=== PATIENT | female | born 1960 | race Caucasian/White ===

== ENCOUNTER 2016-07-15 18:42 | Emergency (ER) | payer MEDICAID | END 2016-07-15 19:19 | disposition left against medical advice (07) | LOC: JP.ED 18:42 | DX: Z53.21 Procedure and treatment not carried out due to patient leaving prior to being seen by health care provider (principal) ==

== ENCOUNTER 2016-09-19 01:58 | Observation (INO) | payer MEDICAID ==
[2016-09-19] MEDS ORDERED: Sodium Chloride 0.9% 1,000 ML IV SCH ×3 (02:15→08:00)
--- NOTE | 2016-09-19 07:19 | EDM.PDOC ---
ED HPI GENERAL MEDICAL PROBLEM - General Chief Complaint: Behavioral/Psych Stated Complaint: MEDICAL [facility]IA [facility] Time Seen by Provider: 09/19/16 02:08 Source of Information: Reports: Patient History Limitations: Reports: Altered Mental Status - History of Present Illness INITIAL COMMENTS - FREE TEXT/NARRATIVE: History of present illness: [56-year-old female is brought in by ambulance with overdose of Seroquel with suicide intent. Since arrival she's been so sleepy and somnolent but able to get a meaningful history from her she continues to sleep heavily. She's been here for. 4 hours. She's been hemodynamically stable moving all extremities and that's the only history when forgetting at this point. I've been able to return more history from her at this point. Apparently she had taken gabapentin and Imdur as well and these are not her medications. She was violently when the animals arrived and throwing things around she was seen on 6:15 by mental health provider in [place] in at that time admitted to having ongoing struggles with recovery and admits taking her friend's gabapentin she continues to crave a high that apparently gabapentin gives her. She apparently was on Suboxone at one time but had not been taking that recently.] Review of systems: As per history of present illness and below otherwise all systems reviewed and negative. Past medical history: As per history of present illness and as reviewed below otherwise noncontributory. Surgical history: As per history of present illness and as reviewed below otherwise noncontributory. Social history: No reported history of drug or alcohol abuse. Family history: As per history of present illness and as reviewed below otherwise noncontributory. Physical exam: HEENT: Atraumatic, normocephalic, pupils reactive, negative for conjunctival pallor or scleral icterus, mucous membranes moist, throat clear, neck supple, nontender, trachea midline. Lungs: Clear to auscultation, breath sounds equal bilaterally, chest nontender. Heart: S1S2, regular, negative for clicks, rubs, or JVD. Abdomen: Soft, nondistended, nontender. Negative for masses or hepatosplenomegaly. Negative for costovertebral tenderness. Pelvis: Stable nontender. Genitourinary: Deferred. Rectal: Deferred. Extremities: Atraumatic, negative for cords or calf pain. Neurovascular unremarkable. Neuro: Awake, alert, oriented. Exam nonfocal. Diagnostics: [She's had CBC complete metabolic panel UA urine drug screen acetaminophen levels salicylate level and EtOH level. Urine drug screen is positive for THC. EKG showing normal sinus rhythm without QT we've also done a magnesium level which is normal CK is slightly elevated.] Therapeutics: [She's receiving IV fluids] Impression: [Overdose of Seroquel gabapentin and Imdur. with this as we can attempt and suicidal intent] Plan: [It will be difficult to assess her level of suicidality until she is able to awake and be assessed. Dr. Herrera has been contacted and she'll be admitted to the ICU as an overflow patient for observation and will have to wait until she awakens to assess her further. She's been discussed with poison control at this time by one of her nurses.] Definitive disposition and diagnosis as appropriate pending reevaluation and review of above. Bilateral Knee Pain Score (Numeric/FACES): 6 - Related Data Allergies Allergy/AdvReac Type Severity Reaction Status Date / Time codeine Allergy Nausea and Verified 09/19/16 02:20 Vomiting morphine Allergy Nausea and Verified 09/19/16 02:20 Vomiting Sulfa (Sulfonamide Allergy Cannot Verified 12/05/15 13:36 Antibiotics) Remember Home Meds: Home Meds QUEtiapine Fumarate [Seroquel] 300 mg PO BEDTIME 12/05/15 [History] Cyclobenzaprine [Flexeril] 10 mg PO DAILY PRN 09/19/16 [History] Docusate Sodium 100 mg PO DAILY 09/19/16 [History] Ibuprofen [Motrin] 800 mg PO TID PRN 09/19/16 [History] Magnesium Oxide 400 mg PO DAILY 09/19/16 [History] Omeprazole 40 mg PO DAILY 09/19/16 [History] Orphenadrine [Norflex] 100 mg PO BID PRN 09/19/16 [History] Pnv with Ca,No.72/Iron/Fa [Preplus Ca-Fe 27 mg-FA 1 mg Tb] 1 each PO DAILY 09/19 [History] Prednisone [IMW: predniSONE] 40 mg PO WITHBREAKFAST 09/19/16 [History] QUEtiapine [SEROquel] 25 mg PO BEDTIME 09/19/16 [History] Tiotropium [Spiriva] 18 mcg INH BID 09/19/16 [History] Venlafaxine [Effexor] 225 mg PO DAILY 09/19/16 [History] lamoTRIgine [Lamotrigine] 25 mg PO BEDTIME 09/19/16 [History] Past Medical History Musculoskeletal History: Reports: Other (See Below) Other Musculoskeletal History: carpal tunnel Psychiatric History: Reports: Addiction, Anxiety, Depression - Infectious Disease History Infectious Disease History: Reports: Chicken Pox Social & Family History - Tobacco Use Smoking Status *Q: Current Every Day Smoker Years of Tobacco use: 13 Packs/Tins Daily: 1.5 - Caffeine Use Caffeine Use: Reports: Coffee, Tea - Recreational Drug Use Recreational Drug Use: Yes Recreational Drug Type: Reports: Marijuana/Hashish, Other (see below) Other Recreational Drug Type: gabapentin Recreational Drug Use Frequency: Daily ED ROS GENERAL - Review of Systems Review Of Systems: Unable To Obtain ED EXAM, BEHAVIORAL HEALTH - Physical Exam Exam: See Below COURSE, BEHAVIORAL HEALTH COMP - Course Vital Signs: Last Vital Signs Temp 36.8 C 09/19/16 02:07 Pulse 70 09/19/16 06:57 Resp 16 09/19/16 02:07 BP 94/58 L 09/19/16 06:57 Pulse Ox 92 L 09/19/16 06:57 Orders, Labs, Meds: Active Orders 24 hr Category Date Time Status Cardiac Monitoring [RC] .As Directed Care 09/19/16 02:14 Active EKG Documentation Completion [RC] ASDIRECTED Care 09/19/16 02:10 Active Sodium Chloride 0.9% [Normal Saline] 1,000 ml Med 09/19/16 08:00 Active IV ASDIRECTED EKG 12 Lead [EK] Stat Ther 09/19/16 02:09 Ordered Medication Orders Sodium Chloride (Normal Saline) 1,000 mls @ 500 mls/hr IV ASDIRECTED MACO Laboratory Tests 09/19/16 09/19/16 09/19/16 Range/Units 02:09 02:09 02:09 WBC 8.9 (4.5-11.0) K/uL RBC 3.82 (3.30-5.50) M/uL Hgb 12.0 (12.0-15.0) g/dL Hct 36.0 (36.0-48.0) % MCV 94 (80-98) fL MCH 31 (27-31) pg MCHC 33 (32-36) % Plt Count 190 (150-400) K/uL Neut % (Auto) 68 H (36-66) % Lymph % (Auto) 22 L (24-44) % [place] % (Auto) 10 H (2-6) % Eos % (Auto) 1 L (2-4) % Baso % (Auto) 0 (0-1) % Sodium 139 L (140-148) mmol/L Potassium 3.4 L (3.6-5.2) mmol/L Chloride 105 (100-108) mmol/L Carbon Dioxide 24 (21-32) mmol/L Anion Gap 13.4 (5.0-14.0) mmol/L BUN 14 (7-18) mg/dL Creatinine 0.9 (0.6-1.0) mg/dL Est Cr Clr Drug Dosing 65.61 mL/min Estimated GFR (MDRD) > 60 (>60) Glucose 155 H (74-106) mg/dL Calcium 8.4 L (8.5-10.1) mg/dL Magnesium (1.8-2.4) mg/dL Total Bilirubin 0.3 (0.2-1.0) mg/dL AST 32 (15-37) U/L ALT 40 (12-78) U/L Alkaline Phosphatase 72 (46-116) U/L Creatine Kinase (26-192) U/L Total Protein 6.0 L (6.4-8.2) g/dL Albumin 2.7 L (3.4-5.0) g/dL Globulin 3.3 (2.3-3.5) g/dL Albumin/Globulin Ratio 0.8 L (1.2-2.2) TSH, Ultra Sensitive (0.358-3.740) uIU/mL Urine Color Yellow Urine Appearance Clear Urine pH 6.0 (4.5-8.0) Ur Specific [place] 1.010 (1.008-1.030) Urine Protein Negative (NEGATIVE) mg/dL Urine Glucose (UA) Normal (NEGATIVE) mg/dL Urine Ketones Negative (NEGATIVE) mg/dL Urine Occult Blood Negative (NEGATIVE) Urine Nitrite Negative (NEGATIVE) Urine Bilirubin Negative (NEGATIVE) Urine Urobilinogen Normal (NORMAL) mg/dL Ur Leukocyte Esterase Negative (NEGATIVE) Urine RBC 0-5 (0-5) Urine WBC 0-5 (0-5) Ur Epithelial Cells Moderate Amorphous Sediment Few Urine Bacteria Rare Urine Mucus Few Salicylates (2.0-20.0) mg/dL Urine Opiates Screen (NEGATIVE) Ur Oxycodone Screen (NEGATIVE) Urine Methadone Screen (NEGATIVE) Ur Propoxyphene Screen (NEGATIVE) Acetaminophen (10.0-30.0) ug/mL Ur Barbiturates Screen (NEGATIVE) Ur Tricyclics Screen (NEGATIVE) Ur Phencyclidine Scrn (NEGATIVE) Ur Amphetamine Screen (NEGATIVE) U Methamphetamines Scrn (NEGATIVE) Urine MDMA Screen (NEGATIVE) U Benzodiazepines Scrn (NEGATIVE) U Cocaine Metab Screen (NEGATIVE) U Marijuana (THC) Screen (NEGATIVE) Ethyl Alcohol mg/dL 09/19/16 09/19/16 09/19/16 Range/Units 02:10 02:10 02:10 WBC (4.5-11.0) K/uL RBC (3.30-5.50) M/uL Hgb (12.0-15.0) g/dL Hct (36.0-48.0) % MCV (80-98) fL MCH (27-31) pg MCHC (32-36) % Plt Count (150-400) K/uL Neut % (Auto) (36-66) % Lymph % (Auto) (24-44) % Rosebud % (Auto) (2-6) % Eos % (Auto) (2-4) % Baso % (Auto) (0-1) % Sodium (140-148) mmol/L Potassium (3.6-5.2) mmol/L Chloride (100-108) mmol/L Carbon Dioxide (21-32) mmol/L Anion Gap (5.0-14.0) mmol/L BUN (7-18) mg/dL Creatinine (0.6-1.0) mg/dL Est Cr Clr Drug Dosing mL/min Estimated GFR (MDRD) (>60) Glucose (74-106) mg/dL Calcium (8.5-10.1) mg/dL Magnesium (1.8-2.4) mg/dL Total Bilirubin (0.2-1.0) mg/dL AST (15-37) U/L ALT (12-78) U/L Alkaline Phosphatase (46-116) U/L Creatine Kinase (26-192) U/L Total Protein (6.4-8.2) g/dL Albumin (3.4-5.0) g/dL Globulin (2.3-3.5) g/dL Albumin/Globulin Ratio (1.2-2.2) TSH, Ultra Sensitive (0.358-3.740) uIU/mL Urine Color Urine Appearance Urine pH (4.5-8.0) Ur Specific [place] (1.008-1.030) Urine Protein (NEGATIVE) mg/dL Urine Glucose (UA) (NEGATIVE) mg/dL Urine Ketones (NEGATIVE) mg/dL Urine Occult Blood (NEGATIVE) Urine Nitrite (NEGATIVE) Urine Bilirubin (NEGATIVE) Urine Urobilinogen (NORMAL) mg/dL Ur Leukocyte Esterase (NEGATIVE) Urine RBC (0-5) Urine WBC (0-5) Ur Epithelial Cells Amorphous Sediment Urine Bacteria Urine Mucus Salicylates 13.1 (2.0-20.0) mg/dL Urine Opiates Screen (NEGATIVE) Ur Oxycodone Screen (NEGATIVE) Urine Methadone Screen (NEGATIVE) Ur Propoxyphene Screen (NEGATIVE) Acetaminophen 0.0 L (10.0-30.0) ug/mL Ur Barbiturates Screen (NEGATIVE) Ur Tricyclics Screen (NEGATIVE) Ur Phencyclidine Scrn (NEGATIVE) Ur Amphetamine Screen (NEGATIVE) U Methamphetamines Scrn (NEGATIVE) Urine MDMA Screen (NEGATIVE) U Benzodiazepines Scrn (NEGATIVE) U Cocaine Metab Screen (NEGATIVE) U Marijuana (THC) Screen (NEGATIVE) Ethyl Alcohol 3 mg/dL 09/19/16 09/19/16 09/19/16 Range/Units 02:10 02:14 02:16 WBC (4.5-11.0) K/uL RBC (3.30-5.50) M/uL Hgb (12.0-15.0) g/dL Hct (36.0-48.0) % MCV (80-98) fL MCH (27-31) pg MCHC (32-36) % Plt Count (150-400) K/uL Neut % (Auto) (36-66) % Lymph % (Auto) (24-44) % [place] % (Auto) (2-6) % Eos % (Auto) (2-4) % Baso % (Auto) (0-1) % Sodium (140-148) mmol/L Potassium (3.6-5.2) mmol/L Chloride (100-108) mmol/L Carbon Dioxide (21-32) mmol/L Anion Gap (5.0-14.0) mmol/L BUN (7-18) mg/dL Creatinine (0.6-1.0) mg/dL Est Cr Clr Drug Dosing mL/min Estimated GFR (MDRD) (>60) Glucose (74-106) mg/dL Calcium (8.5-10.1) mg/dL Magnesium 2.0 (1.8-2.4) mg/dL Total Bilirubin (0.2-1.0) mg/dL AST (15-37) U/L ALT (12-78) U/L Alkaline Phosphatase (46-116) U/L Creatine Kinase 380 H (26-192) U/L Total Protein (6.4-8.2) g/dL Albumin (3.4-5.0) g/dL Globulin (2.3-3.5) g/dL Albumin/Globulin Ratio (1.2-2.2) TSH, Ultra Sensitive 0.966 (0.358-3.740) uIU/mL Urine Color Urine Appearance Urine pH (4.5-8.0) Ur Specific [place] (1.008-1.030) Urine Protein (NEGATIVE) mg/dL Urine Glucose (UA) (NEGATIVE) mg/dL Urine Ketones (NEGATIVE) mg/dL Urine Occult Blood (NEGATIVE) Urine Nitrite (NEGATIVE) Urine Bilirubin (NEGATIVE) Urine Urobilinogen (NORMAL) mg/dL Ur Leukocyte Esterase (NEGATIVE) Urine RBC (0-5) Urine WBC (0-5) Ur Epithelial Cells Amorphous Sediment Urine Bacteria Urine Mucus Salicylates (2.0-20.0) mg/dL Urine Opiates Screen Negative (NEGATIVE) Ur Oxycodone Screen Negative (NEGATIVE) Urine Methadone Screen Negative (NEGATIVE) Ur Propoxyphene Screen Negative (NEGATIVE) Acetaminophen (10.0-30.0) ug/mL Ur Barbiturates Screen Negative (NEGATIVE) Ur Tricyclics Screen Negative (NEGATIVE) Ur Phencyclidine Scrn Negative (NEGATIVE) Ur Amphetamine Screen Negative (NEGATIVE) U Methamphetamines Scrn Negative (NEGATIVE) Urine MDMA Screen Negative (NEGATIVE) U Benzodiazepines Scrn Negative (NEGATIVE) U Cocaine Metab Screen Negative (NEGATIVE) U Marijuana (THC) Screen Positive H (NEGATIVE) Ethyl Alcohol mg/dL Medications Generic Name Dose Route Start Last Admin Trade Name Freq PRN Reason Stop Dose Admin Sodium Chloride 1,000 mls @ 500 mls/hr 09/19/16 08:00 Normal Saline IV ASDIRECTED MACO Discontinued Medications Generic Name Dose Route Start Last Admin Trade Name Freq PRN Reason Stop Dose Admin Sodium Chloride 1,000 mls @ 500 mls/hr 09/19/16 02:15 09/19/16 02:33 Normal Saline IV 500 mls/hr ASDIRECTED MACO Administration Sodium Chloride 1,000 mls @ 500 mls/hr 09/19/16 05:15 09/19/16 05:07 Normal Saline IV 125 mls/hr ASDIRECTED MACO Administration Departure - Departure Time of Disposition: 07:57 Disposition: Admitted As Inpatient 64 Clinical Impression: Polysubstance overdose Qualifiers: Encounter type: initial encounter Injury intent: intentional self-harm Qualified Code(s): T50.902A - Poisoning by unspecified drugs, medicaments and biological substances, intentional self-harm, initial encounter - Discharge Information Forms: ED Department Discharge - My Orders Last 24 Hours: My Active Orders 09/19/16 02:09 EKG 12 Lead [EK] Stat 09/19/16 02:10 EKG Documentation Completion [RC] ASDIRECTED 09/19/16 02:14 Cardiac Monitoring [RC] .As Directed 09/19/16 08:00 Sodium Chloride 0.9% [Normal Saline] 1,000 ml IV ASDIRECTED - Assessment/Plan Last 24 Hours: My Active Orders 09/19/16 02:09 EKG 12 Lead [EK] Stat 09/19/16 02:10 EKG Documentation Completion [RC] ASDIRECTED 09/19/16 02:14 Cardiac Monitoring [RC] .As Directed 09/19/16 08:00 Sodium Chloride 0.9% [Normal Saline] 1,000 ml IV ASDIRECTED
[2016-09-19] MEDS ORDERED: Calcium Gluconate 1 GM in Sodium Chloride 0.9% 100 ML IV ONE (08:25)
[2016-09-19] MEDS ORDERED: Nicotine 21 MG/24 Hr Patch TRDERM SCH (10:00)
[2016-09-19] MEDS: NS + KCl 20mEq/L 1,000 ML IV SCH ×3 (10:19→23:39)
[2016-09-19] MEDS: Nicotine 14 MG/24 Hr Patch TRDERM SCH (10:24)
--- NOTE | 2016-09-19 16:29 | HP ---
IDENTIFYING DATA: Nany Anderson is a 56-year-old single female from [place]. CHIEF COMPLAINT: Drug ingestion. HISTORY OF PRESENT ILLNESS: This adult female was delivered to the emergency room by ambulance services. Law enforcement had received a call that she was acting violently at her apartment complex, yelling and throwing objects, and on their arrival, reportedly admitted to ingestion of medications. She was conversant though agitated when ambulance arrived, she was calming and became increasingly sedated. Records initially suggested she had ingested a combination of Seroquel, gabapentin, and Imdur. Later this was corrected noting she has not ingested Imdur rather had ingested Inderal. She has a longstanding history of recurrent depression with suicide attempt, reported posttraumatic stress disorder and potential bipolar affective disorder. Additionally, she has ongoing history of multisubstance abuse with reports of previous alcohol, cannabis, and methamphetamine abuse. She is seen by [facility] on a regular basis with recent addition of Lamictal to her medication regimen. Records suggest she indicate she was relapsing with substance abuse at the time of most recent evaluation though did not have suicidal ideation. PAST MEDICAL HISTORY: The patient is somnolent secondary to medication ingestion, unable to provide additional factual information. 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 ALLERGIES: BY RECORD REVIEW INDICATE CODEINE, MORPHINE, AND SULFA. CURRENT MEDICATIONS: Lamictal 25 mg at bedtime initiated within the past week with subsequent increase to 50 mg a day at bedtime, cyclobenzaprine 10 mg p.r.n. muscle spasm, venlafaxine extended release 225 mg every morning, propranolol 20 mg b.i.d., magnesium oxide 400 mg at bedtime, docusate 100 mg daily, MiraLAX 17 g daily p.r.n. constipation, Zofran 4 mg q.8 hours p.r.n. nausea, Seroquel 325 mg at bedtime, Motrin 800 mg q.8 hours p.r.n. pain, albuterol metered dose inhaler 2 puffs q.6 hours p.r.n. shortness of breath, vitamin with iron one tablet daily, omeprazole 40 mg daily, Spiriva 18 mcg capsules inhaled daily. HABITS: Noted history of chronic alcohol abuse with relapsing binge drinking reported. Records suggest recent substance abuse as well including use of gabapentin for desired high. No recent influenza vaccine, pneumococcal status is unknown. SOCIAL HISTORY: Records indicate residence and an apartment complex in [place]. Next to kin is a daughter in the [place] area. FAMILY HISTORY: Unable to obtain given the patient is sedated and minimally responsive state. REVIEW OF SYSTEMS: NEUROLOGIC: No noted history of strokes or seizures. No glasses worn. CARDIAC: No history of hypertension, diabetes, or cardiac disease by record review. RESPIRATORY: Suggested obstructive pulmonary disease and chronic tobacco use. GASTROINTESTINAL: Records indicate a history of hepatitis C exposure. No definitive documentation of chronic hepatitis C. No emesis or apparent abdominal pain on presentation. GENITOURINARY: No incontinence. PHYSICAL EXAMINATION: GENERAL: Appearance is that of an adult female, somnolent, minimally responsive to verbal and tactile stimulation. VITAL SIGNS: Temperature 36.8 degrees centigrade, pulse is 70, respiratory rate 16, blood pressure 94/58, O2 saturations 92% on room air. HEENT: Canals and TMs are normal on inspection of the ears. Pupils are reactive to light and direct and consensual responses. No nystagmus. No movement. No facial asymmetries. Oral mucosa is noninflamed. NECK: No stridor, adenopathy, or nuchal rigidity. No meningismus. Brisk carotid pulses. No bruits. LUNGS: Clear. Non-tachypneic. HEART: Regular without murmurs or gallops. Sinus rhythm with controlled rate by cardiac monitoring. ABDOMEN: Thin, soft, nontender, and nondistended. No organomegaly. Active sounds. Good femoral pulses. GENITOURINARY: Omitted. RECTAL: Omitted. EXTREMITIES: Warm and pink. Non-diaphoretic. No cyanosis or duskiness of the nail beds. Brisk capillary refill. Radial and posterior tibial pulses are brisk and intact. No pitting edema. NEUROLOGIC: Symmetrical brachia radialis, patellar, and bicipital DTRs. Normal tone throughout symmetrical movement of the upper and lower extremities with tactile stimulation. No purposeful movement at the current time. She responds to voice and sternal rub. Does not engage in conversation. She is nonambulatory at the current time. LABORATORY DATA: WBC 8.9, hemoglobin 12, platelet count 190,000, sodium 139, potassium mildly depressed at 3.4, BUN 14, creatinine 0.9. GFR greater than 60. Glucose 155, calcium 8.4, AST 32, ALT 40, alkaline phosphatase 72. Urinalysis, negative dipstick. Urine drug screen negative for acetaminophen and weakly positive for salicylates, magnesium 2.0, creatine kinase moderately elevated at 380. TSH is 0.97. Urine drug screen positive for THC. Otherwise unremarkable. IMPRESSIONS: 1. Multidrug ingestion with somnolent state. 2. History of depressive disorder. 3. History of substance abuse with records indicating methamphetamine, cannabis, and alcohol abuse, recurrently overtime. 4. Voiced suicidal ideation at the time of transfer to the Emergency Department now with sedated state. Unable to provide factual information. PLAN: The patient will be admitted to the Intensive Care Unit for continued cardiac monitoring. IV fluid infusion to maintain hydration, and neuro checks have been initiated if she awakens and shows violent tendencies or ongoing suicidal intent. A 72-hour hold will be issued, no medications provided. Currently, we will request behavioral health assessment as well. Full code status is maintained. Yonathan Sheppard MD /[id number]
[2016-09-20] MEDS: NS + KCl 20mEq/L 1,000 ML IV SCH (05:58)
[2016-09-20 08:32] VITALS: BP 119/72
--- NOTE | 2016-09-20 09:33 | PCM.DCSUM1 ---
Discharge Summary - Hospital Course Brief History: 56 yr old female with hx of depression, polysubstance drug use issues who presented with agitation after poly-drug ingestion. She was admitted for observation and detoxification. - Discharge Data Discharge Date: 09/20/16 Discharge Disposition: Home, Self-Care 01 Condition: Fair - Discharge Diagnosis/Problem(s) (1) Polysubstance overdose SNOMED Code(s): 78530179 ICD Code: T50.901A - POISONING BY UNSP DRUG/MEDS/BIOL SUBST, ACCIDENTAL, INIT Status: Acute Qualifiers: Encounter type: initial encounter Injury intent: accidental or unintentional Qualified Code(s): T50.901A - Poisoning by unspecified drugs, medicaments and biological substances, accidental (unintentional), initial encounter - Patient Summary/Data Hospital Course: Nany was admitted yesterday after a possible drug overdose and potentially indigestion to cause self-harm. History was difficult to obtain at the time because of somnolence and obtundation. She had mild hypotension and bradycardia throughout much of the day but as the day progressed following admission her heart rate returned to normal and blood pressures normalized as well. She did wake up yesterday evening after sleeping much of the day. No acute events overnight and her vital signs have been stable. On the morning of discharge we reviewed the events leading up to the ingestion that prompted admission. She reports that she was intoxicated with gabapentin tablets and then impulsively took propranolol and quetiapine tablets to see if she could have additional intoxication effects. She says that this was not an attempt to harm herself and she has no suicidal ideations or intent. She is remorseful of the events leading up to hospital admission. She has been apologetic to her daughter. To me this seems like an impulsive ingestion while she was intoxicated with another substance. There certainly are some underlying substance use issues here but I don't believe that she is actively suicidal or dangerous to herself. I did speak with one of her interval health practitioners today. At this point I think she is safe for outpatient management. I have not made any medication changes at this time. She is aware of the dangers of mixing a variety of medications. She is seeking help through previous addiction services following hospital discharge. I do believe she is safe for outpatient management and will be following up with mental health providers next week. - Patient Instructions Diet: Regular Diet as Tolerated Activity: As Tolerated Driving: Do Not Drive (today) Showering/Bathing: May Shower Notify Provider of: Fever, Increased Pain, Nausea and/or Vomiting Other/Special Instructions: 1. You were in the hospital following an overdose of multiple medications. You were monitored overnight and your vital signs have stablized. I do not believe you need inpatient psychiatric treatment at this time. I do strongly recommend you follow up as scheduled with your psychiatric providers in the coming weeks. Please seek medical attention in the ER or call 911 if you develop thoughts of harming yourself or others. - Discharge Plan Home Medications: Home Meds QUEtiapine Fumarate [Seroquel] 300 mg PO BEDTIME 12/05/15 [History] Cyclobenzaprine [Flexeril] 10 mg PO DAILY PRN 09/19/16 [History] Docusate Sodium 100 mg PO DAILY 09/19/16 [History] Ibuprofen [Motrin] 800 mg PO TID PRN 09/19/16 [History] Magnesium Oxide 400 mg PO DAILY 09/19/16 [History] Omeprazole 40 mg PO DAILY 09/19/16 [History] Orphenadrine [Norflex] 100 mg PO BID PRN 09/19/16 [History] Pnv with Ca,No.72/Iron/Fa [Preplus Ca-Fe 27 mg-FA 1 mg Tb] 1 each PO DAILY 09/19 [History] Prednisone [IMW: predniSONE] 40 mg PO WITHBREAKFAST 09/19/16 [History] QUEtiapine [SEROquel] 25 mg PO BEDTIME 09/19/16 [History] Tiotropium [Spiriva HandiHaler] 18 mcg INH BID 09/19/16 [History] Venlafaxine [Effexor] 225 mg PO DAILY 09/19/16 [History] lamoTRIgine [Lamotrigine] 25 mg PO BEDTIME 09/19/16 [History] Patient Handouts: Cannabis Use Disorder Referrals: PCP,None [Primary Care Provider] - (f/u with your mental health providers as scheduled ) - Discharge Summary/Plan Comment DC Time >30 min.: No (25) - Patient Data Vitals - Most Recent: Last Vital Signs Temp 36.8 C 09/20/16 07:00 Pulse 79 09/20/16 08:31 Resp 20 09/20/16 08:31 BP 119/72 09/20/16 08:31 Pulse Ox 100 09/20/16 08:31 Weight - Most Recent: 61 kg I&O - Last 24 hours: Intake & Output 09/19/16 09/20/16 09/20/16 22:59 06:59 14:59 Intake Total 1451 1836 600 Output Total 2400 1100 Balance -949 736 600 Lab Results - Last 24 hrs: Laboratory Results - last 24 hr 09/19/16 09/19/16 09/19/16 Range/Units 10:09 12:43 12:43 Sodium 141 (140-148) mmol/L Potassium 3.7 (3.6-5.2) mmol/L Chloride 111 H (100-108) mmol/L Carbon Dioxide 25 (21-32) mmol/L Anion Gap 8.7 (5.0-14.0) mmol/L BUN 11 (7-18) mg/dL Creatinine 0.7 (0.6-1.0) mg/dL Est Cr Clr Drug Dosing 84.36 mL/min Estimated GFR (MDRD) > 60 (>60) Glucose 101 (74-106) mg/dL Lactic Acid 0.4 (0.4-2.0) mmol/L Calcium 7.6 L (8.5-10.1) mg/dL Total Bilirubin (0.2-1.0) mg/dL AST (15-37) U/L ALT (12-78) U/L Alkaline Phosphatase (46-116) U/L Creatine Kinase (26-192) U/L Total Protein (6.4-8.2) g/dL Albumin (3.4-5.0) g/dL Globulin (2.3-3.5) g/dL Albumin/Globulin Ratio (1.2-2.2) Salicylates 12.8 (2.0-20.0) mg/dL Acetaminophen 2.0 L (10.0-30.0) ug/mL 09/20/16 09/20/16 Range/Units 05:05 05:05 Sodium 141 (140-148) mmol/L Potassium 4.1 (3.6-5.2) mmol/L Chloride 111 H (100-108) mmol/L Carbon Dioxide 24 (21-32) mmol/L Anion Gap 10.1 (5.0-14.0) mmol/L BUN 6 L (7-18) mg/dL Creatinine 0.7 (0.6-1.0) mg/dL Est Cr Clr Drug Dosing 84.36 mL/min Estimated GFR (MDRD) > 60 (>60) Glucose 90 (74-106) mg/dL Lactic Acid (0.4-2.0) mmol/L Calcium 7.9 L (8.5-10.1) mg/dL Total Bilirubin 0.2 (0.2-1.0) mg/dL AST 24 (15-37) U/L ALT 31 (12-78) U/L Alkaline Phosphatase 68 (46-116) U/L Creatine Kinase 199 H (26-192) U/L Total Protein 5.6 L (6.4-8.2) g/dL Albumin 2.4 L (3.4-5.0) g/dL Globulin 3.2 (2.3-3.5) g/dL Albumin/Globulin Ratio 0.8 L (1.2-2.2) Salicylates 10.9 (2.0-20.0) mg/dL Acetaminophen (10.0-30.0) ug/mL Med Orders - Current: Current Medications Potassium Chloride/Sodium Chloride (Normal Saline With 20 Meq Kcl) 1,000 mls @ 150 mls/hr IV ASDIRECTED [facility] Last Admin: 09/20/16 05:58 Dose: 150 mls/hr Nicotine (Habitrol) 14 mg TRDERM DAILY [facility] Last Admin: 09/19/16 10:24 Dose: 14 mg Pneumococcal Polyvalent Vaccine (Pneumovax 23) 0.5 ml SUBCUT .ONCE ONE Stop: 09/20/16 10:01 Discontinued Medications Sodium Chloride (Normal Saline) 1,000 mls @ 500 mls/hr IV ASDIRECTED [facility] Last Admin: 09/19/16 02:33 Dose: 500 mls/hr Sodium Chloride (Normal Saline) 1,000 mls @ 500 mls/hr IV ASDIRECTED [facility] Last Admin: 09/19/16 05:07 Dose: 125 mls/hr Sodium Chloride (Normal Saline) 1,000 mls @ 500 mls/hr IV ASDIRECTED [facility] Calcium Gluconate 1 gm/ Sodium (Chloride) 110 mls @ 100 mls/hr IV ONETIME ONE Stop: 09/19/16 09:30 Last Admin: 09/19/16 11:48 Dose: Not Given Nicotine (Habitrol) 14 mg TRDERM DAILY [facility] Last Admin: 09/19/16 11:47 Dose: Not Given *Q Meaningful Use (DIS) - VTE *Q VTE Criteria *Q: - Stroke *Q Stroke Criteria *Q: - AMI *Q AMI Criteria *Q:
[2016-09-20] MEDS ORDERED: Pneumococcal Polyvalent-23 Vaccine 0.5 ML SDV SUBCUT ONE (10:00)
[2016-09-20] MEDS: Nicotine 14 MG/24 Hr Patch TRDERM SCH (10:05)
== END 2016-09-20 12:51 | disposition home or self-care (01) ==
LOC: JP.ED 01:58 → JP.ICU 09:29
PROVIDERS: ADMIT Family Medicine; ATTEND Internal Medicine
DX: T42.6X1A Poisoning by other antiepileptic and sedative-hypnotic drugs, accidental (unintentional), initial encounter (principal); T44.7X1A Poisoning by beta-adrenoreceptor antagonists, accidental (unintentional), initial encounter; T43.591A Poisoning by other antipsychotics and neuroleptics, accidental (unintentional), initial encounter; J44.9 Chronic obstructive pulmonary disease, unspecified; F41.9 Anxiety disorder, unspecified; F32.9 Major depressive disorder, single episode, unspecified; Z88.2 Allergy status to sulfonamides; Z88.8 Allergy status to other drugs, medicaments and biological substances; Z79.899 Other long term (current) drug therapy; F17.210 Nicotine dependence, cigarettes, uncomplicated; Z23 Encounter for immunization
CPT/HCPCS: 36415; 80048; 80053; 80305; 81001; 82550; 82803; 83605; 83735; 84443; 85025; 93005; 93010; 96361; 96365; 96366; 99217; 99285; A9270; G0009; G0378; G0480; J3480; J7040; 90471; 90732; 96374

== ENCOUNTER 2016-10-01 21:27 | Emergency (ER) | payer MEDICAID | END 2016-10-01 21:45 | disposition left against medical advice (07) | LOC: JP.ED 21:27 | DX: Z53.21 Procedure and treatment not carried out due to patient leaving prior to being seen by health care provider (principal) ==

== ENCOUNTER 2016-11-04 07:05 | Emergency (ER) | payer MEDICAID ==
[2016-11-04 07:24] VITALS: BP 128/92
--- NOTE | 2016-11-04 07:54 | EDM.PDOC ---
[id number] [facility] [place] Time Seen by Provider: 11/04/16 07:35 Source of Information: Reports: Patient, EMS History Limitations: Reports: No Limitations - History of Present Illness INITIAL COMMENTS - FREE TEXT/NARRATIVE: 56-year-old female brought in by EMS with lower extremity edema, petechia of the lower extremities, lymphadenopathy of the groin and generalized malaise. She denies any fevers or chills. She was recently diagnosed with bipolar disorder and feels like she is on" meth all the time", she does act somewhat hypomanic. She's been going to AA, avoiding illicit drug use and alcohol and does seem very sincere and is apologetic for her past behavior. She's been wearing compression stockings on her lower extremities which doesn't seem to be helping. Onset: Unknown/Unsure (Ongoing for the last several weeks, worse in the last 48 hours) Location: Reports: Other (Most of her concerns are in the lower extremities) Severity: Mild Associated Symptoms: Reports: Malaise. Denies: Chest Pain, Fever/Chills, Headaches, Nausea/Vomiting, Shortness of Breath Bilateral Feet Pain Score (Numeric/FACES): 7 - Related Data Allergies Allergy/AdvReac Type Severity Reaction Status Date / Time codeine Allergy Nausea and Verified 09/19/16 02:20 Vomiting morphine Allergy Nausea and Verified 09/19/16 02:20 Vomiting Sulfa (Sulfonamide Allergy Cannot Verified 12/05/15 13:36 Antibiotics) Remember Home Meds: Home Meds QUEtiapine Fumarate [Seroquel] 300 mg PO BEDTIME 12/05/15 [History] Cyclobenzaprine [Flexeril] 10 mg PO DAILY PRN 09/19/16 [History] Docusate Sodium 100 mg PO DAILY 09/19/16 [History] Ibuprofen [Motrin] 800 mg PO TID PRN 09/19/16 [History] Magnesium Oxide 400 mg PO DAILY 09/19/16 [History] Omeprazole 40 mg PO DAILY 09/19/16 [History] Pnv with Ca,No.72/Iron/Fa [Preplus Ca-Fe 27 mg-FA 1 mg Tb] 1 each PO DAILY 09/19 [History] QUEtiapine [SEROquel] 25 mg PO BEDTIME 09/19/16 [History] Tiotropium [Spiriva HandiHaler] 18 mcg INH BID 09/19/16 [History] Venlafaxine [Effexor] 112.5 mg PO DAILY 09/19/16 [History] lamoTRIgine [Lamotrigine] 25 mg PO BEDTIME 09/19/16 [History] Albuterol [Ventolin HFA] 2 puff .XX QID PRN 11/04/16 [History] Buprenorphine/Naloxone [Suboxone 2 MG-0.5 MG] 1 tab SL BID 11/04/16 [History] Past Medical History Respiratory History: Reports: COPD 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: Musculoskeletal History: Reports: Other (See Below) Other Musculoskeletal History: carpal tunnel Psychiatric History: Reports: Addiction, Anxiety, Depression Oncologic (Cancer) History: Reports: Cervix - Infectious Disease History Infectious Disease History: Reports: Chicken Pox, Measles, Mumps Social & Family History - Family History Psychiatric: Reports: Depression, Other (See Below) Other Psychiatric Family History: addiction - Tobacco Use Smoking Status *Q: Current Every Day Smoker Years of Tobacco use: 46 Packs/Tins Daily: 1 - Caffeine Use Caffeine Use: Reports: Coffee - Recreational Drug Use Recreational Drug Use: Yes Drug Use in Last 12 Months: Yes Recreational Drug Type: Reports: Marijuana/Hashish, Other (see below) Other Recreational Drug Type: gabapentin Recreational Drug Use Frequency: Daily ED ROS GENERAL - Review of Systems Review Of Systems: See Below Constitutional: Reports: Malaise. Denies: Fever, Chills HEENT: Reports: No Symptoms Respiratory: Denies: Shortness of Breath Cardiovascular: Denies: Chest Pain GI/Abdominal: Denies: Abdominal Pain : Reports: No Symptoms Musculoskeletal: Reports: Leg Pain Skin: Reports: Other (Patient has an outbreak of small lesions on her lower extremities which are petechiae on exam) ED EXAM, GENERAL - Physical Exam Exam: See Below Exam Limited By: No Limitations General Appearance: Alert, Anxious, Other (Hypomanic, very talkative, tearful) Eye Exam: Bilateral Eye: Normal Inspection Respiratory/Chest: No Respiratory Distress, Lungs Clear Cardiovascular: Regular Rate, Rhythm Extremities: Pedal Edema (1+ pedal edema of both lower extremities from the feet to the mid calf, numerous petechiae are present especially on the right) Lymphatic: Adenopathy (There is palpable adenopathy in both groins left greater than right) Course - Vital Signs Last Recorded V/S: Last Vital Signs Temp 96.9 F 11/04/16 07:17 Pulse 82 11/04/16 07:17 Resp 18 11/04/16 07:17 BP 128/92 H 11/04/16 07:17 Pulse Ox 96 11/04/16 07:17 - Orders/Labs/Meds Labs: Laboratory Tests 11/04/16 11/04/16 11/04/16 Range/Units 07:48 08:00 08:00 WBC 7.9 (4.5-11.0) K/uL RBC 4.23 (3.30-5.50) M/uL Hgb 13.4 (12.0-15.0) g/dL Hct 40.3 (36.0-48.0) % MCV 95 (80-98) fL MCH 32 H (27-31) pg MCHC 33 (32-36) % Plt Count 185 (150-400) K/uL Neut % (Auto) 67 H (36-66) % Lymph % (Auto) 22 L (24-44) % [place] % (Auto) 9 H (2-6) % Eos % (Auto) 2 (2-4) % Baso % (Auto) 1 (0-1) % Sodium 136 L (140-148) mmol/L Potassium 3.9 (3.6-5.2) mmol/L Chloride 102 (100-108) mmol/L Carbon Dioxide 28 (21-32) mmol/L Anion Gap 9.9 (5.0-14.0) mmol/L BUN 9 (7-18) mg/dL Creatinine 0.8 (0.6-1.0) mg/dL Est Cr Clr Drug Dosing TNP Estimated GFR (MDRD) > 60 (>60) Glucose 95 (74-106) mg/dL Calcium 8.9 (8.5-10.1) mg/dL Total Bilirubin 0.4 D (0.2-1.0) mg/dL AST 40 H (15-37) U/L ALT 27 (12-78) U/L Alkaline Phosphatase 81 (46-116) U/L Total Protein 7.8 (6.4-8.2) g/dL Albumin 3.4 (3.4-5.0) g/dL Globulin 4.4 H (2.3-3.5) g/dL Albumin/Globulin Ratio 0.8 L (1.2-2.2) Urine Color Yellow Urine Appearance Clear Urine pH 6.5 (4.5-8.0) Ur Specific [place] 1.010 (1.008-1.030) Urine Protein Negative (NEGATIVE) mg/dL Urine Glucose (UA) Normal (NEGATIVE) mg/dL Urine Ketones Negative (NEGATIVE) mg/dL Urine Occult Blood Negative (NEGATIVE) Urine Nitrite Negative (NEGATIVE) Urine Bilirubin Negative (NEGATIVE) Urine Urobilinogen Normal (NORMAL) mg/dL Ur Leukocyte Esterase Negative (NEGATIVE) Urine RBC Not seen (0-5) Urine WBC 0-5 (0-5) Ur Epithelial Cells Not seen Amorphous Sediment Rare Urine Bacteria Not seen Urine Mucus Not seen Urine Opiates Screen (NEGATIVE) Ur Oxycodone Screen (NEGATIVE) Urine Methadone Screen (NEGATIVE) Ur Propoxyphene Screen (NEGATIVE) Ur Barbiturates Screen (NEGATIVE) Ur Tricyclics Screen (NEGATIVE) Ur Phencyclidine Scrn (NEGATIVE) Ur Amphetamine Screen (NEGATIVE) U Methamphetamines Scrn (NEGATIVE) Urine MDMA Screen (NEGATIVE) U Benzodiazepines Scrn (NEGATIVE) U Cocaine Metab Screen (NEGATIVE) U Marijuana (THC) Screen (NEGATIVE) 11/04/16 Range/Units 08:19 WBC (4.5-11.0) K/uL RBC (3.30-5.50) M/uL Hgb (12.0-15.0) g/dL Hct (36.0-48.0) % MCV (80-98) fL MCH (27-31) pg MCHC (32-36) % Plt Count (150-400) K/uL Neut % (Auto) (36-66) % Lymph % (Auto) (24-44) % Gentry % (Auto) (2-6) % Eos % (Auto) (2-4) % Baso % (Auto) (0-1) % Sodium (140-148) mmol/L Potassium (3.6-5.2) mmol/L Chloride (100-108) mmol/L Carbon Dioxide (21-32) mmol/L Anion Gap (5.0-14.0) mmol/L BUN (7-18) mg/dL Creatinine (0.6-1.0) mg/dL Est Cr Clr Drug Dosing Estimated GFR (MDRD) (>60) Glucose (74-106) mg/dL Calcium (8.5-10.1) mg/dL Total Bilirubin (0.2-1.0) mg/dL AST (15-37) U/L ALT (12-78) U/L Alkaline Phosphatase (46-116) U/L Total Protein (6.4-8.2) g/dL Albumin (3.4-5.0) g/dL Globulin (2.3-3.5) g/dL Albumin/Globulin Ratio (1.2-2.2) Urine Color Urine Appearance Urine pH (4.5-8.0) Ur Specific [place] (1.008-1.030) Urine Protein (NEGATIVE) mg/dL Urine Glucose (UA) (NEGATIVE) mg/dL Urine Ketones (NEGATIVE) mg/dL Urine Occult Blood (NEGATIVE) Urine Nitrite (NEGATIVE) Urine Bilirubin (NEGATIVE) Urine Urobilinogen (NORMAL) mg/dL Ur Leukocyte Esterase (NEGATIVE) Urine RBC (0-5) Urine WBC (0-5) Ur Epithelial Cells Amorphous Sediment Urine Bacteria Urine Mucus Urine Opiates Screen Negative (NEGATIVE) Ur Oxycodone Screen Negative (NEGATIVE) Urine Methadone Screen Negative (NEGATIVE) Ur Propoxyphene Screen Negative (NEGATIVE) Ur Barbiturates Screen Negative (NEGATIVE) Ur Tricyclics Screen Negative (NEGATIVE) Ur Phencyclidine Scrn Negative (NEGATIVE) Ur Amphetamine Screen Negative (NEGATIVE) U Methamphetamines Scrn Negative (NEGATIVE) Urine MDMA Screen Negative (NEGATIVE) U Benzodiazepines Scrn Negative (NEGATIVE) U Cocaine Metab Screen Negative (NEGATIVE) U Marijuana (THC) Screen Negative (NEGATIVE) - Re-Assessments/Exams Free Text/Narrative Re-Assessment/Exam: 11/04/16 07:54 A UA was obtained as well as a CBC and BMP. 11/04/16 08:44 Labs were very reassuring, UA was negative, urine toxicology was negative, CBC was normal with normal platelets. LFTs were normal. I gave the patient 10 doses of ketorolac to take twice daily for the next 4-5 days and encouraged her to continue her other medications. She can recheck with her primary care later this week. Departure - Departure Time of Disposition: 09:15 Disposition: Home, Self-Care 01 Condition: Good Clinical Impression: Peripheral edema, Anxiety about health - Discharge Information Instructions: Peripheral Edema Referrals: Leny Gresham PA [Primary Care Provider] - Forms: ED Department Discharge Care Plan Goals: Try pain medication twice daily for the next 3-4 days, increase activity as tolerated and continue your other medications. Avoid extra salt.
== END 2016-11-04 09:10 | disposition home or self-care (01) ==
LOC: JP.ED 07:05
DX: R60.0 Localized edema (principal); F41.8 Other specified anxiety disorders; J44.9 Chronic obstructive pulmonary disease, unspecified; F17.210 Nicotine dependence, cigarettes, uncomplicated; Z85.41 Personal history of malignant neoplasm of cervix uteri; Z79.899 Other long term (current) drug therapy; Z88.2 Allergy status to sulfonamides; Z88.5 Allergy status to narcotic agent
CPT/HCPCS: 36415; 80053; 80305; 81001; 85025; 99284; 99285

== ENCOUNTER 2016-11-13 22:38 | Inpatient (IN) | payer MEDICAID ==
[2016-11-13] MEDS ORDERED: Sodium Chloride 0.9% 1,000 ML IV SCH (23:00)
[2016-11-13] MEDS ORDERED: Iopamidol 612 MG/ML 100 ML Bottle IV SCH (23:15)
--- NOTE | 2016-11-14 00:37 | EDM.PDOC ---
ED HPI GENERAL MEDICAL PROBLEM - General Chief Complaint: General Stated Complaint: MEDICAL [facility] Time Seen by Provider: 11/13/16 22:53 Source of Information: Reports: Patient History Limitations: Reports: No Limitations - History of Present Illness INITIAL COMMENTS - FREE TEXT/NARRATIVE: History of present illness: [56-year-old female is presenting with a painful lump in her left groin. She's had this for about 2 weeks now and suddenly today it became larger and more painful and she started to feel like she was getting bloated. She's had a little bit of nausea with this no vomiting she's had no constipation or diarrhea or dysuria she's had no fevers or chills. Patient has a history of addiction to opiates and opiate dependence and is on Suboxone for this. He also has a history of hepatitis C. She was also recently diagnosed as being bipolar.] Review of systems: As per history of present illness and below otherwise all systems reviewed and negative. Past medical history: As per history of present illness and as reviewed below otherwise noncontributory. Surgical history: As per history of present illness and as reviewed below otherwise noncontributory. Social history: No reported history of drug or alcohol abuse. Family history: As per history of present illness and as reviewed below otherwise noncontributory. Physical exam: HEENT: Atraumatic, normocephalic, pupils reactive, negative for conjunctival pallor or scleral icterus, mucous membranes moist, throat clear, neck supple, nontender, trachea midline. Lungs: Clear to auscultation, but somewhat diminished she does have a history of COPD Heart: S1S2, regular, negative for clicks, rubs, or JVD. Abdomen: She has a painful lump in her left groin that follows the inguinal canal that is sausagelike and about 2 2 cm x 5 cm and is painful to palpation. Pelvis: Stable nontender. Genitourinary: Deferred. Rectal: Deferred. Extremities: Atraumatic, negative for cords or calf pain. Neurovascular unremarkable. Neuro: Awake, alert, oriented. Cranial nerves II through XII unremarkable. Cerebellum unremarkable. Motor and sensory unremarkable throughout. Exam nonfocal. Diagnostics: [Abdominal pelvic CT is demonstrating a left inguinal hernia with a loop of bowel. CBC and complete metabolic panel and UA are done as well and unremarkable ] Therapeutics: [She's received IV fluids while here] Impression: [Left inguinal hernia] Plan: [I spoke with Dr. Waldemar Zambrano and he will take her to surgery in the morning. She' ll be placed on a [employer]COME ANALYST pump tonight be nothing by mouth and given IV fluids through the night. I will order a chest x-ray and EKG in preparation for surgery as well.] Definitive disposition and diagnosis as appropriate pending reevaluation and review of above. Left Lower Pelvic Pain Score (Numeric/FACES): 5 - Related Data Allergies Allergy/AdvReac Type Severity Reaction Status Date / Time codeine Allergy Nausea and Verified 09/19/16 02:20 Vomiting morphine Allergy Nausea and Verified 09/19/16 02:20 Vomiting Sulfa (Sulfonamide Allergy Cannot Verified 12/05/15 13:36 Antibiotics) Remember Home Meds: Home Meds QUEtiapine Fumarate [Seroquel] 300 mg PO BEDTIME 12/05/15 [History] Cyclobenzaprine [Flexeril] 10 mg PO DAILY PRN 09/19/16 [History] Docusate Sodium 100 mg PO DAILY 09/19/16 [History] Ibuprofen [Motrin] 800 mg PO TID PRN 09/19/16 [History] Magnesium Oxide 400 mg PO DAILY 09/19/16 [History] Omeprazole 40 mg PO DAILY 09/19/16 [History] Pnv with Ca,No.72/Iron/Fa [Preplus Ca-Fe 27 mg-FA 1 mg Tb] 1 each PO DAILY 09/19 [History] QUEtiapine [SEROquel] 25 mg PO BEDTIME 09/19/16 [History] Tiotropium [Spiriva HandiHaler] 18 mcg INH BID 09/19/16 [History] Venlafaxine [Effexor] 112.5 mg PO DAILY 09/19/16 [History] lamoTRIgine [Lamotrigine] 25 mg PO BEDTIME 09/19/16 [History] Albuterol [Ventolin HFA] 2 puff .XX QID PRN 11/04/16 [History] Buprenorphine/Naloxone [Suboxone 2 MG-0.5 MG] 1 tab SL BID 11/04/16 [History] Past Medical History Respiratory History: Reports: COPD [facility] History: Reports: Musculoskeletal History: Reports: Other (See Below) Other Musculoskeletal History: carpal tunnel Psychiatric History: Reports: Addiction, Anxiety, Depression Oncologic (Cancer) History: Reports: Cervix - Infectious Disease History Infectious Disease History: Reports: Chicken Pox Social & Family History - Family History Psychiatric: Reports: Depression, Other (See Below) Other Psychiatric Family History: addiction - Tobacco Use Smoking Status *Q: Current Every Day Smoker Years of Tobacco use: 46 Packs/Tins Daily: 1 - Caffeine Use Caffeine Use: Reports: Coffee - Recreational Drug Use Recreational Drug Use: Yes Drug Use in Last 12 Months: Yes Recreational Drug Type: Reports: Marijuana/Hashish, Other (see below) Other Recreational Drug Type: gabapentin Recreational Drug Use Frequency: Daily ED ROS GENERAL - Review of Systems Review Of Systems: ROS reveals no pertinent complaints other than HPI. ED EXAM, GENERAL - Physical Exam Exam: See Below Course - Vital Signs Last Recorded V/S: Last Vital Signs Temp 36.1 C 11/13/16 22:41 Pulse 72 11/13/16 22:41 Resp 18 11/13/16 22:41 BP 134/53 L 11/13/16 22:41 Pulse Ox 97 11/13/16 22:41 - Orders/Labs/Meds Orders: Active Orders 24 hr Category Date Time Status Abdomen Pelvis w Cont [CT] Stat Exams 11/13/16 22:54 Taken Sodium Chloride 0.9% [Normal Saline] 1,000 ml Med 11/13/16 23:00 Active IV ASDIRECTED Medication Orders Sodium Chloride (Normal Saline) 1,000 mls @ 500 mls/hr IV ASDIRECTED MACO Last Admin: 11/13/16 23:01 Dose: 500 mls/hr Labs: Laboratory Tests 11/13/16 11/13/16 11/13/16 Range/Units 22:50 22:50 22:59 WBC 7.5 (4.5-11.0) K/uL RBC 4.24 (3.30-5.50) M/uL Hgb 13.4 (12.0-15.0) g/dL Hct 39.8 (36.0-48.0) % MCV 94 (80-98) fL MCH 32 H (27-31) pg MCHC 34 (32-36) % Plt Count 193 (150-400) K/uL Neut % (Auto) 55 (36-66) % Lymph % (Auto) 32 (24-44) % Bates % (Auto) 9 H (2-6) % Eos % (Auto) 3 (2-4) % Baso % (Auto) 1 (0-1) % Sodium 136 L (140-148) mmol/L Potassium 3.8 (3.6-5.2) mmol/L Chloride 103 (100-108) mmol/L Carbon Dioxide 26 (21-32) mmol/L Anion Gap 10.8 (5.0-14.0) mmol/L BUN 12 (7-18) mg/dL Creatinine 0.7 (0.6-1.0) mg/dL Est Cr Clr Drug Dosing TNP Estimated GFR (MDRD) > 60 (>60) Glucose 90 (74-106) mg/dL Calcium 8.9 (8.5-10.1) mg/dL Total Bilirubin 0.5 (0.2-1.0) mg/dL AST 31 (15-37) U/L ALT 26 (12-78) U/L Alkaline Phosphatase 80 (46-116) U/L Total Protein 7.5 (6.4-8.2) g/dL Albumin 3.3 L (3.4-5.0) g/dL Globulin 4.2 H (2.3-3.5) g/dL Albumin/Globulin Ratio 0.8 L (1.2-2.2) Urine Color Yellow Urine Appearance Clear Urine pH 6.0 (4.5-8.0) Ur Specific [place] 1.010 (1.008-1.030) Urine Protein Negative (NEGATIVE) mg/dL Urine Glucose (UA) Normal (NEGATIVE) mg/dL Urine Ketones Negative (NEGATIVE) mg/dL Urine Occult Blood Negative (NEGATIVE) Urine Nitrite Negative (NEGATIVE) Urine Bilirubin Negative (NEGATIVE) Urine Urobilinogen Normal (NORMAL) mg/dL Ur Leukocyte Esterase Negative (NEGATIVE) Urine RBC 0-5 (0-5) Urine WBC 0-5 (0-5) Ur Epithelial Cells Few Amorphous Sediment Not seen Urine Bacteria Rare Urine Mucus Not seen Meds: Medications Generic Name Dose Route Start Last Admin Trade Name Freq PRN Reason Stop Dose Admin Sodium Chloride 1,000 mls @ 500 mls/hr 11/13/16 23:00 11/13/16 23:01 Normal Saline IV 500 mls/hr ASDIRECTED MACO Administration Discontinued Medications Generic Name Dose Route Start Last Admin Trade Name Freq PRN Reason Stop Dose Admin Sodium Chloride 70 mls @ 3 mls/sec 11/13/16 23:10 11/13/16 23:27 Normal Saline IV 11/13/16 23:11 3 mls/sec ASDIRECTED STA Administration Iopamidol 100 ml 11/13/16 23:15 11/13/16 23:27 Isovue-300 (61%) IV 11/13/16 23:16 100 ml . DIRECTED MACO Administration Departure - Departure Time of Disposition: 00:36 Disposition: Admitted As Inpatient 64 Condition: Good Clinical Impression: Left inguinal hernia - Discharge Information Forms: ED Department Discharge - My Orders Last 24 Hours: My Active Orders 11/13/16 22:54 Abdomen Pelvis w Cont [CT] Stat 11/13/16 23:00 Sodium Chloride 0.9% [Normal Saline] 1,000 ml IV ASDIRECTED - Assessment/Plan Last 24 Hours: My Active Orders 11/13/16 22:54 Abdomen Pelvis w Cont [CT] Stat 11/13/16 23:00 Sodium Chloride 0.9% [Normal Saline] 1,000 ml IV ASDIRECTED
[2016-11-14] MEDS: HYDROmorphone/Normal Saline 15 MG/30 ML PCA IV SCH (01:38)
[2016-11-14] MEDS ORDERED: Lactated Ringers 1,000 ML IV SCH (01:45)
[2016-11-14] MEDS ORDERED: Ondansetron 4 MG/2 ML SDV IVPUSH PRN (02:08)
[2016-11-14] MEDS ORDERED: Albuterol/Ipratropium 3.0-0.5 MG/3 ML Neb Soln NEB ONE (06:11)
[2016-11-14] MEDS ORDERED: Bupivacaine 0.5% 50 ML MDV ONE (06:11)
[2016-11-14] MEDS ORDERED: Lidocaine 1% with EPINEPHrine 1:100,000 50 ML MDV ONE (06:11)
[2016-11-14] MEDS ORDERED: Albuterol/Ipratropium 3.0-0.5 MG/3 ML Neb Soln ONE (06:15)
[2016-11-14] MEDS ORDERED: Propofol 200 MG/20 ML SDV ONE (06:32)
[2016-11-14] MEDS ORDERED: Midazolam 1 MG/ML 2 ML SDV ONE (06:32)
[2016-11-14] MEDS ORDERED: fentaNYL 100 MCG/2 ML SDV ONE ×2 (06:32→07:13)
[2016-11-14] MEDS: cefOXitin 2 GM in Sodium Chloride 0.9% 50 ML IV ONE ×2 (06:51→07:24)
[2016-11-14] MEDS ORDERED: Ondansetron 4 MG/2 ML SDV ONE (06:57)
[2016-11-14] MEDS ORDERED: Rocuronium 50 MG/5 ML Vial ONE (06:57)
[2016-11-14] MEDS ORDERED: Glycopyrrolate 0.2 MG/ML 5 ML MDV ONE (06:57)
[2016-11-14] MEDS ORDERED: Neostigmine Methylsulfate 1 MG/ML 5 ML Syringe ONE (06:57)
[2016-11-14] MEDS ORDERED: Dexamethasone 4 MG/ML SDV ONE (06:57)
[2016-11-14] MEDS ORDERED: Lactated Ringers 1,000 ML ONE (06:59)
[2016-11-14] MEDS ORDERED: Naloxone 0.4 MG/ML SDV IV PRN (07:54)
[2016-11-14] MEDS ORDERED: hydrOXYzine HCl 100 MG/2 ML SDV IM ONE (08:02)
[2016-11-14] MEDS ORDERED: hydrOXYzine HCl 100 MG/2 ML SDV IM PRN (08:50)
[2016-11-14] MEDS ORDERED: hydrOXYzine HCl 25 MG Tab PO PRN (08:51)
[2016-11-14] MEDS ORDERED: Albuterol/Ipratropium 3.0-0.5 MG/3 ML Neb Soln INH PRN (08:52)
[2016-11-14] MEDS ORDERED: Cyclobenzaprine 10 MG Tab PO PRN (08:53)
--- NOTE | 2016-11-14 09:09 | CR ---
Chest 2V INDICATION: COPD COMPARISON: 12/05/2015 FINDINGS: Two views. Heart size normal. Hyperinflation. No acute infiltrates. Previous right-side d pulmonary infiltrate is cleared. No pleural effusions or signs of pulmonary edema. IMPRESSION: Hyperinflation. Nothing acute.
[2016-11-14] MEDS: Acetaminophen 325 MG Tab PO SCH ×3 (09:46→21:21)
[2016-11-14] MEDS: Gabapentin 300 MG Cap PO SCH ×3 (09:46→21:21)
[2016-11-14] MEDS: Ibuprofen 800 MG Tab PO SCH ×3 (09:46→21:20)
[2016-11-14] MEDS ORDERED: MVI, Adult with Vitamin K 10 ML, Chromium/Copper/Mang/Selen/Zn 1 ML, Thiamine 200 MG in... IV ONE ×4 (10:00)
[2016-11-14] MEDS: Magnesium Oxide 400 MG Tab PO SCH (10:01)
[2016-11-14] MEDS: Pantoprazole 40 MG Tab.CR PO SCH (10:39)
[2016-11-14] MEDS: VENLAFAXINE PO SCH ×2 (10:43)
[2016-11-14] MEDS: cefOXitin 2 GM in Sodium Chloride 0.9% 50 ML IV SCH ×3 (11:08→23:28)
[2016-11-14] MEDS: Albuterol/Ipratropium 3.0-0.5 MG/3 ML Neb Soln INH SCH ×3 (11:14→21:21)
[2016-11-14] MEDS: Tiotropium Inhaler 18 MCG Inhalation Powder Cap Kit of 5 INH SCH (11:30)
[2016-11-14] MEDS: Dextrose 5%-Lactated Ringers 1,000 ML IV SCH (19:12)
[2016-11-14] MEDS: QUETIAPINE PO SCH ×2 (21:21)
[2016-11-14] MEDS ORDERED: Lactated Ringers 500 ML IV SCH (22:30)
[2016-11-15] MEDS: Acetaminophen 325 MG Tab PO SCH ×4 (03:37→23:12)
[2016-11-15] MEDS: Dextrose 5%-Lactated Ringers 1,000 ML IV SCH ×3 (04:36→22:42)
[2016-11-15] MEDS: Pantoprazole 40 MG Tab.CR PO SCH (07:32)
[2016-11-15] MEDS: Tiotropium Inhaler 18 MCG Inhalation Powder Cap Kit of 5 INH SCH ×2 (07:38→12:48)
[2016-11-15] MEDS: Albuterol/Ipratropium 3.0-0.5 MG/3 ML Neb Soln INH SCH ×4 (07:38→20:32)
[2016-11-15] MEDS: Gabapentin 300 MG Cap PO SCH ×3 (08:44→20:29)
[2016-11-15] MEDS: VENLAFAXINE PO SCH ×2 (08:44)
[2016-11-15] MEDS: Ibuprofen 800 MG Tab PO SCH ×3 (08:45→20:28)
[2016-11-15] MEDS: Magnesium Oxide 400 MG Tab PO SCH (08:45)
[2016-11-15] MEDS: HYDROmorphone/Normal Saline 15 MG/30 ML PCA IV SCH (09:42)
--- NOTE | 2016-11-15 10:21 | PN ---
DATE OF SERVICE: 11/15/2016 SUBJECTIVE: Nany is postop day 1. She states her pain is controlled. She has no questions or concerns. She has been eating. Vital signs have been stable. OBJECTIVE: GENERAL: Nany Anderson is a 56-year-old female. She is sitting up in the chair. VITAL SIGNS: TPR 97.7, 76, 17, blood pressure 132/73. HEENT: Negative. NECK: Supple. HEART: Regular rate and rhythm. LUNGS: Clear. ABDOMEN: Dressings dry and intact. Abdominal binder is on. EXTREMITIES: Without peripheral edema. ASSESSMENT: Left inguinal exploration with repair of incarcerated femoral hernia with mesh, exploratory laparotomy with partial cystectomy and partial omentectomy and excision of incarcerated left femoral hernia containing necrotic omentum and portion of the urinary bladder and thick skin lesion abdominal wall in midline on 11/14/2016. PLAN: Schedule delayed and have consent signed for delayed primary closure, IV sedation, Saturday11/16/2016, Raad Zambrano MD, n.p.o. after midnight. NG and catheter will be removed during at the same time of delayed primary closure. IV D5 LR 100 mL per hour. Good pulmonary toilet encouraged. We will evaluate p.r.n. or in a.m. Nay Menjivar PA-C /[id number]
[2016-11-15] MEDS: QUETIAPINE PO SCH ×2 (20:29)
[2016-11-16] MEDS: Acetaminophen 325 MG Tab PO SCH (04:38)
[2016-11-16] MEDS ORDERED: Bupivacaine 0.5% 50 ML MDV ONE (06:44)
[2016-11-16] MEDS ORDERED: Meropenem 500 MG SDV ONE (06:44)
[2016-11-16] MEDS ORDERED: Lidocaine 1% with EPINEPHrine 1:100,000 50 ML MDV ONE (06:45)
[2016-11-16] MEDS ORDERED: fentaNYL 100 MCG/2 ML SDV ONE (06:56)
[2016-11-16] MEDS ORDERED: Propofol 200 MG/20 ML SDV ONE (06:56)
[2016-11-16] MEDS ORDERED: Midazolam 1 MG/ML 2 ML SDV ONE (06:57)
[2016-11-16] MEDS ORDERED: Lactated Ringers 1,000 ML ONE (07:36)
[2016-11-16] MEDS: Albuterol/Ipratropium 3.0-0.5 MG/3 ML Neb Soln INH SCH ×4 (08:00→20:23)
[2016-11-16] MEDS: Tiotropium Inhaler 18 MCG Inhalation Powder Cap Kit of 5 INH SCH (08:34)
[2016-11-16] MEDS: Acetaminophen/HYDROcodone 325-5 MG Tab PO PRN ×2 (09:39→16:16)
[2016-11-16] MEDS: Gabapentin 300 MG Cap PO SCH ×3 (09:40→20:24)
[2016-11-16] MEDS: Ibuprofen 800 MG Tab PO SCH ×3 (09:40→20:23)
[2016-11-16] MEDS: VENLAFAXINE PO SCH ×2 (09:40)
[2016-11-16] MEDS: Magnesium Oxide 400 MG Tab PO SCH (09:40)
[2016-11-16] MEDS: Pantoprazole 40 MG Tab.CR PO SCH (09:40)
--- NOTE | 2016-11-16 10:06 | PN ---
DATE OF SERVICE: 11/16/2016 SUBJECTIVE: Nany is n.p.o. She is going down today for a delayed primary closure. Pain has been controlled. She has been up ambulating. BM was 11/14/2016. Temp max 98.2. OBJECTIVE: GENERAL: Nany Anderson is a 56-year-old female. VITAL SIGNS: TPR is 97.9, 81, 16, and blood pressure 135/69. HEENT: Negative. NECK: Supple. HEART: Regular rate and rhythm. LUNGS: Clear. ABDOMEN: Dressings dry and intact. Abdominal binder is on. EXTREMITIES: Without peripheral edema. ASSESSMENT: Left inguinal exploration with repair of incarcerated femoral hernia with mesh, exploratory laparotomy with partial cystectomy and partial omentectomy, and excision of incarcerated left femoral hernia containing necrotic omentum and portion of the urinary bladder and thick skin lesion abdominal wall in midline, 11/14/2016. PLAN: Orders to be written after delayed primary closure. Nay Menjivar PA-C /[id number]
[2016-11-16] MEDS: QUETIAPINE PO SCH ×2 (20:24)
[2016-11-17] MEDS: Albuterol/Ipratropium 3.0-0.5 MG/3 ML Neb Soln INH SCH (07:35)
[2016-11-17] MEDS: Tiotropium Inhaler 18 MCG Inhalation Powder Cap Kit of 5 INH SCH (07:35)
[2016-11-17 08:37] VITALS: BP 143/72
[2016-11-17] MEDS: VENLAFAXINE PO SCH ×2 (08:41)
[2016-11-17] MEDS: Gabapentin 300 MG Cap PO SCH (08:41)
[2016-11-17] MEDS: Magnesium Oxide 400 MG Tab PO SCH (08:41)
[2016-11-17] MEDS: Pantoprazole 40 MG Tab.CR PO SCH (08:41)
[2016-11-17] MEDS: Ibuprofen 800 MG Tab PO SCH (08:41)
[2016-11-17] MEDS: Acetaminophen/HYDROcodone 325-5 MG Tab PO PRN (08:43)
[2016-11-17] MEDS ORDERED: Magnesium Hydroxide 400 MG/5 ML Susp 30 ML Cup PO ONE ×2 (09:00→10:15)
--- NOTE | 2016-11-17 15:45 | DISCH ---
FINAL DIAGNOSES: 1. Incarcerated left femoral hernia containing necrotic omentum and portion of urinary bladder. 2. Small skin cyst of the lower midline abdomen. 3. Chronic obstructive pulmonary disease. 4. History of narcotic addiction. 5. History of gabapentin addiction. OPERATIVE PROCEDURE: This was done on 11/14/2016. 1. Left inguinal exploration with repair of incarcerated femoral hernia with mesh. 2. Exploratory laparotomy with partial cystectomy and partial omentectomy. 3. Excision of skin cyst lower abdominal wall, midline, and then on 11/16/2016, a delayed primary closure of abdominal incision. HOSPITAL COURSE: This is a 56-year-old female presenting with incarcerated left femoral hernia, at the time exploration was noted to have some necrotic urinary bladder wall as well as omentum within it. The hernia was fixed with a mesh plug technique, and the bladder and omentum were partially excised and closed. She had a White catheter in for 48 hours. The lower midline incision was left open, due to this likely contamination related to the urinary bladder. The opening was closed on postop day 2. At this point, she is being discharged home. She will be sent home with [place] 5/325 one to two tabs q.4 hours p.r.n. pain. She will be instructed to hold the Suboxone while on the [place] and restart that once done. Also take ibuprofen plus minus the [place] and will be sent with 2 doses of milk of magnesia p.r.n. for constipation. Follow up with Nay Menjivar in [facility] next 11/23/2016.
--- NOTE | 2016-11-19 12:57 | OR ---
DATE OF PROCEDURE: 11/16/2016 PREOPERATIVE DIAGNOSIS: Open abdominal incision. POSTOPERATIVE DIAGNOSIS: Open abdominal incision. OPERATIVE PROCEDURE: Delayed primary closure of open abdominal incision. ANESTHESIA: Local plus IV sedation. INDICATIONS FOR PROCEDURE: This is a 56-year-old status post a repair of an incarcerated femoral hernia which some bladder resection was required. She had some open bladder with some urine that appeared to be contaminated and given this the skin and subcutaneous tissues were felt to be at high risk of a wound infection if a primary closure be undertaken. Given this, the wound was packed open for a planned delayed primary closure at this time. Potential risks including bleeding and infection were reviewed, and the patient wishes to proceed. DETAILS OF PROCEDURE: The patient was taken to the operating room and placed in a supine position. IV sedation was administered after which the operative dressing was taken down and the incision was inspected and was found to be clean. The incision was then prepped and draped, anesthetized with 1% lidocaine with Marcaine and irrigated with meropenem-containing saline solution. A 10-Irish round Javier-Malin drain was then placed through a stab wound inferior to the incision and the incision was then closed with 2 layers of 3-0 and 4-0 Vicryl stitch deep and then brianne for the skin. The drain was affixed with some 4-0 Vicryl stitch and the dressing applied. The patient was taken to the recovery room in satisfactory condition. Raad Zambrano MD /[id number]
--- NOTE | 2016-11-19 14:21 | OR ---
DATE OF PROCEDURE: 11/14/2016 PREOPERATIVE DIAGNOSIS: Incarcerated left inguinal hernia. POSTOPERATIVE DIAGNOSES: 1. Incarcerated left femoral hernia containing necrotic omentum and portion of the urinary bladder. 2. Small cystic lesion, lower midline abdomen. OPERATIVE PROCEDURE: 1. Left inguinal exploration with repair of incarcerated left femoral hernia repaired with mesh (79787). 2. Exploratory laparotomy with:. a. Partial cystectomy (72101). b. Partial omentectomy (32136). c. Excision of a small skin cyst located along the lower midline incision (57315). ANESTHESIA: General. INDICATION FOR PROCEDURE: This is a 56-year-old presenting with an incarcerated left groin hernia, this felt that it was most likely with an inguinal hernia clinically. The plan is to proceed with left inguinal exploration with repair of the hernia. There is obviously a significant incarcerated component to this and the patient is aware that we may need to also perform a laparotomy to correct pathology with the bladder or other possibly incarcerated structures. Potential risks of the procedure including bleeding, infection, recurrence of the hernia, and possible leaks from any GI tract closures, that might be required as well as possibility of cardiopulmonary, septic, or hemorrhagic complications leading to were discussed, and the patient wishes to proceed. DETAILS OF PROCEDURE: The patient was taken to the operating room and placed in a supine position. After general endotracheal anesthesia was induced, the abdomen and groin areas were prepped and draped. Initially, left inguinal groin area incision was made and upon dissection it was evident that this was a femoral hernia with the mass projecting at a point below the inguinal ligament. This area was then opened up and dissected free down to the level of the femoral hernia defect. This could not be reduced at this point, and through the peritoneal lining it was quite obvious that there was some necrotic material within it and given this a decision was made to proceed with a lower midline incision via exploratory laparotomy. This was then completed from the umbilicus down to the pubis. In the midline, a roughly 2 mm skin cyst was present. This was excised along the line of the incision and sent as a separate specimen. Upon entering the peritoneal cavity, the patient was noted to have both some omentum as well as the left edge of the urinary bladder within the hernia. These were gradually reduced by means of external pressure as well as dividing the inguinal ligament a little bit anterior to the point where the femoral hernia came through underneath the ligament. As one reduced the contents, there was some necrotic omentum within it and some urinary bladder was also present, which at least on the surface was necrotic. The omentum was divided at the point of the junction of the necrotic and viable tissue and the remaining end suture ligated with a 3-0 Vicryl stitch. The urinary bladder was then opened and partial cystectomy accomplished by means of electrocautery. This continued downward into the level of the bladder just anterior to the left ureter. The musculature of the bladder at that point appeared to be viable after it's division. The soft tissue overlying the musculature was excised, which was partially necrotic. With the ureter in clear visibility, the initial layer of musculature was approximated with a 2-0 Vicryl stitch and then an additional more or less seromuscular type stitch of 2-0 Vicryl was then used to complete the bladder closure. Prior to opening the bladder, the femoral hernia repair was accomplished with placement of mesh plug into the femoral hernia defect. This was affixed to the pubic bone with some titanium tacking screws then to the edges of the inguinal ligament with some 3-0 Vicryl stitch. The inguinal floor was noted to be entirely intact and this was also confirmed from within. The external oblique aponeurosis was then approximated with a 3-0 Vicryl stitch and the Chetan fascia likewise was closed with a 4-0 Vicryl stitch and the skin with brianne. This phase of the procedure was completed prior to entering the bladder, so this did not cause any contamination of bladder incision. Following that then the cystectomy and omentectomy were then completed and the midline fascia was then approximated with a #2 Vicryl stitch. Because the patient appeared to probably have a urinary tract infection, it was felt that the skin and subcutaneous tissue were high risk for wound infection, should a primary closure be undertaken. Given this it was packed open with iodoform gauze, and the patient was taken to the recovery room in satisfactory condition. There were no evident complications. Raad Zambrano MD /[id number]
== END 2016-11-17 10:40 | disposition home or self-care (01) | DRG 350 ==
LOC: JP.ED 22:38 → JP.ICU 11-14 00:30 → JP.MS 11-14 13:50
PROVIDERS: ADMIT Surgery; ATTEND Surgery
PROC: 0DBT0ZZ (ICD-10-PCS; principal; 2016-11-14)
PROC: 0HB7XZZ Excision of Abdomen Skin, External Approach (ICD-10-PCS; principal; 2016-11-14)
PROC: 0YU60JZ Supplement Left Inguinal Region with Synthetic Substitute, Open Approach (ICD-10-PCS; principal; 2016-11-14)
PROC: 0TBB0ZZ Excision of Bladder, Open Approach (ICD-10-PCS; principal; 2016-11-14)
PROC: 0WQF0ZZ Repair Abdominal Wall, Open Approach (ICD-10-PCS; 2016-11-16)
DX: K40.30 Unilateral inguinal hernia, with obstruction, without gangrene, not specified as recurrent (principal); K55.069 Acute infarction of intestine, part and extent unspecified; L72.0 Epidermal cyst; N32.89 Other specified disorders of bladder; Z48.1 Encounter for planned postprocedural wound closure; F31.9 Bipolar disorder, unspecified; F41.9 Anxiety disorder, unspecified; J44.9 Chronic obstructive pulmonary disease, unspecified; Z86.19 Personal history of other infectious and parasitic diseases; Z85.41 Personal history of malignant neoplasm of cervix uteri; F11.21 Opioid dependence, in remission; Z88.5 Allergy status to narcotic agent; Z88.2 Allergy status to sulfonamides
CPT/HCPCS: 36415; 71020; 71020-26; 74177; 80053; 81001; 85025; 88302; 88304; 88305; 93005; 94640; 94640-76; 94664; 94762; 96360; 96361; 99284; 99285-25; A9270-GY; C1781; J0131; J0694; J1100; J1170; J2185; J2250; J2405; J2704; J2710; J3010; J3360; J3410; J3411; J7030; J7040; J7042; J7050; J7120; J7620; Q9967

== ENCOUNTER 2016-12-06 02:54 | Emergency (ER) | payer MEDICAID ==
[2016-12-06 03:02] VITALS: BP 152/110
--- NOTE | 2016-12-06 03:38 | EDM.PDOC ---
ED HPI GENERAL MEDICAL PROBLEM - General Chief Complaint: Abdominal Pain Stated Complaint: MEDICAL VIA NOTH Time Seen by Provider: 12/06/16 03:20 Source of Information: Reports: Patient History Limitations: Reports: No Limitations - History of Present Illness INITIAL COMMENTS - FREE TEXT/NARRATIVE: 56-year-old female who had hernia surgery 3 weeks ago is in with abdominal pain for the past 12 hours. It started after she was active, walking and lifting some objects. No fever or chills, no nausea or vomiting. Her lower abdomen feels tight, bloated and painful. She also is very anxious and is been having pruritus. Onset: Gradual (Abdominal pain started 12 hours ago) Location: Reports: Abdomen Abdominal Pain Score (Numeric/FACES): 6 - Related Data Allergies Allergy/AdvReac Type Severity Reaction Status Date / Time Sulfa (Sulfonamide Allergy Cannot Verified 12/06/16 03:02 Antibiotics) Remember codeine AdvReac Nausea and Verified 12/06/16 03:02 Vomiting morphine AdvReac Nausea and Verified 12/06/16 03:02 Vomiting Home Meds: Home Meds QUEtiapine Fumarate [Seroquel] 300 mg PO BEDTIME 12/05/15 [History] Cyclobenzaprine [Flexeril] 10 mg PO DAILY PRN 09/19/16 [History] Docusate Sodium 100 mg PO DAILY 09/19/16 [History] Ibuprofen [Motrin] 800 mg PO TID PRN 09/19/16 [History] Magnesium Oxide 400 mg PO DAILY 09/19/16 [History] Omeprazole 40 mg PO DAILY 09/19/16 [History] Pnv with Ca,No.72/Iron/Fa [Preplus Ca-Fe 27 mg-FA 1 mg Tb] 1 each PO DAILY 09/19 [History] QUEtiapine [SEROquel] 50 mg PO BEDTIME 09/19/16 [History] Tiotropium [Spiriva HandiHaler] 18 mcg INH DAILYRT 09/19/16 [History] Venlafaxine [Effexor] 37.5 mg PO DAILY 09/19/16 [History] Albuterol [Ventolin HFA] 2 puff .XX QID PRN 11/04/16 [History] Buprenorphine/Naloxone [Suboxone 2 MG-0.5 MG] 1 tab SL BID 08/06/17 [History] Past Medical History Respiratory History: Reports: COPD Gastrointestinal History: Reports: GERD 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: Musculoskeletal History: Reports: Other (See Below) Other Musculoskeletal History: carpal tunnel Psychiatric History: Reports: Addiction, Anxiety, Bipolar, Depression, Suicide Attempt, Suicidal Ideation Oncologic (Cancer) History: Reports: Cervix - Infectious Disease History Infectious Disease History: Reports: Hepatitis C - Past Surgical History HEENT Surgical History: Reports: LASIK GI Surgical History: Reports: Hernia Repair/Other Social & Family History - Family History Psychiatric: Reports: Depression, Other (See Below) Other Psychiatric Family History: addiction - Tobacco Use Smoking Status *Q: Current Every Day Smoker Years of Tobacco use: 44 Packs/Tins Daily: 0.5 - Caffeine Use Caffeine Use: Reports: Coffee - Recreational Drug Use Recreational Drug Use: Yes Drug Use in Last 12 Months: Yes Recreational Drug Type: Reports: Marijuana/Hashish Other Recreational Drug Type: gabapentin Recreational Drug Use Frequency: Not Used In Over 2 Months ED ROS GENERAL - Review of Systems Review Of Systems: See Below Constitutional: Denies: Fever, Chills, Malaise HEENT: Reports: No Symptoms Respiratory: Denies: Shortness of Breath, Cough Cardiovascular: Denies: Chest Pain GI/Abdominal: Reports: Abdominal Pain, Distension : Reports: No Symptoms Musculoskeletal: Reports: Other (Patient has lower extremity edema) Skin: Reports: Pruritis (Diffuse) Neurological: Denies: Headache Psychiatric: Reports: Anxiety ED EXAM, GI/ABD - Physical Exam Exam: See Below Exam Limited By: No Limitations General Appearance: Alert, No Apparent Distress, Anxious Eyes: Bilateral: Normal Appearance Respiratory/Chest: No Respiratory Distress, Lungs Clear Cardiovascular: Regular Rate, Rhythm GI/Abdominal Exam: Normal Bowel Sounds, Soft, Distended (She does have some mild distention of her lower abdomen), Tender (Some tenderness with palpation) Extremities: Pedal Edema (1+ lower extremity edema which is symmetric) Neurological: Alert, Oriented Skin Exam: Warm, Dry, Other (surgical incisions look excellent) Course - Vital Signs Last Recorded V/S: Last Vital Signs Temp 97.9 F 12/06/16 02:56 Pulse 83 12/06/16 02:56 Resp 20 12/06/16 02:56 BP 152/110 H 12/06/16 02:56 Pulse Ox 98 12/06/16 02:56 - Orders/Labs/Meds Orders: Active Orders 24 hr Category Date Time Status Abdomen Pelvis w Cont [CT] Stat Exams 12/06/16 03:36 Taken Labs: Laboratory Tests 12/06/16 12/06/16 12/06/16 Range/Units 03:36 03:37 03:37 WBC 9.0 (4.5-11.0) K/uL RBC 4.15 (3.30-5.50) M/uL Hgb 13.0 (12.0-15.0) g/dL Hct 38.7 (36.0-48.0) % MCV 93 (80-98) fL MCH 31 (27-31) pg MCHC 34 (32-36) % Plt Count 256 (150-400) K/uL Neut % (Auto) 60 (36-66) % Lymph % (Auto) 26 (24-44) % [place] % (Auto) 9 H (2-6) % Eos % (Auto) 4 (2-4) % Baso % (Auto) 1 (0-1) % Sodium 137 L (140-148) mmol/L Potassium 4.4 (3.6-5.2) mmol/L Chloride 102 (100-108) mmol/L Carbon Dioxide 27 (21-32) mmol/L Anion Gap 12.4 (5.0-14.0) mmol/L BUN 12 (7-18) mg/dL Creatinine 0.8 (0.6-1.0) mg/dL Est Cr Clr Drug Dosing 69.16 mL/min Estimated GFR (MDRD) > 60 (>60) Glucose 111 H (74-106) mg/dL Calcium 8.8 (8.5-10.1) mg/dL Total Bilirubin 0.4 (0.2-1.0) mg/dL AST 48 H (15-37) U/L ALT 24 (12-78) U/L Alkaline Phosphatase 94 (46-116) U/L Total Protein 7.9 (6.4-8.2) g/dL Albumin 3.3 L (3.4-5.0) g/dL Globulin 4.6 H (2.3-3.5) g/dL Albumin/Globulin Ratio 0.7 L (1.2-2.2) Urine Color Yellow Urine Appearance Clear Urine pH 8.0 (4.5-8.0) Ur Specific [place] 1.015 (1.008-1.030) Urine Protein Negative (NEGATIVE) mg/dL Urine Glucose (UA) Normal (NEGATIVE) mg/dL Urine Ketones Negative (NEGATIVE) mg/dL Urine Occult Blood Negative (NEGATIVE) Urine Nitrite Negative (NEGATIVE) Urine Bilirubin Negative (NEGATIVE) Urine Urobilinogen Normal (NORMAL) mg/dL Ur Leukocyte Esterase Negative (NEGATIVE) Urine RBC 0-5 (0-5) Urine WBC 0-5 (0-5) Ur Epithelial Cells Not seen Amorphous Sediment Rare Urine Bacteria Not seen Urine Mucus Not seen Meds: Medications Discontinued Medications Generic Name Dose Route Start Last Admin Trade Name Freq PRN Reason Stop Dose Admin Sodium Chloride 70 mls @ 3 mls/sec 12/06/16 03:44 12/06/16 04:11 Normal Saline IV 12/06/16 03:45 3 mls/sec ASDIRECTED STA Administration Iopamidol 100 ml 12/06/16 03:44 12/06/16 04:11 Isovue-300 (61%) IV 12/06/16 03:45 100 ml . DIRECTED STA Administration - Re-Assessments/Exams Free Text/Narrative Re-Assessment/Exam: 12/06/16 03:35 A CBC, CMP and UA was obtained. Intent is to get an IV enhanced abdomen CT after the creatinine is back. 12/06/16 05:09 Labs are very reassuring. White count is normal. CT reveals a small collection of fluid in the left inguinal area but on further evaluation with the patient she tells of a recent seroma in the area which is likely continuing to resolve. She did have a fairly large amount of stool so I encouraged her to increase her MiraLAX and stool softeners. She can return if worsening. Departure - Departure Time of Disposition: 05:40 Disposition: Home, Self-Care 01 Condition: Good Clinical Impression: Abdominal pain Qualifiers: Abdominal location: lower abdomen, unspecified Qualified Code(s): R10.30 - Lower abdominal pain, unspecified Postoperative seroma Qualifiers: Surgical complication system/body Area: subcutaneous tissue Procedure type: non -dermatologic Qualified Code(s): L76.34 - Postprocedural seroma of skin and subcutaneous tissue following other procedure - Discharge Information Instructions: Seroma Referrals: PCP,None [Primary Care Provider] - Forms: ED Department Discharge Care Plan Goals: Continue with stool softeners or MiraLAX, drink lots of water and recheck as scheduled. Return any time a few feel you are worsening such as fever or increased pain. Increase activity as tolerated. - My Orders Last 24 Hours: My Active Orders 12/06/16 03:36 Abdomen Pelvis w Cont [CT] Stat - Assessment/Plan Last 24 Hours: My Active Orders 12/06/16 03:36 Abdomen Pelvis w Cont [CT] Stat
[2016-12-06] MEDS ORDERED: Iopamidol 612 MG/ML 100 ML Bottle IV STA (03:44)
== END 2016-12-06 05:40 | disposition home or self-care (01) ==
LOC: JP.ED 02:54
DX: L76.34 Postprocedural seroma of skin and subcutaneous tissue following other procedure (principal); R10.30 Lower abdominal pain, unspecified; J44.9 Chronic obstructive pulmonary disease, unspecified; K21.9 Gastro-esophageal reflux disease without esophagitis; F41.9 Anxiety disorder, unspecified; F17.210 Nicotine dependence, cigarettes, uncomplicated; F32.9 Major depressive disorder, single episode, unspecified; Z88.2 Allergy status to sulfonamides; Z88.5 Allergy status to narcotic agent; Z79.899 Other long term (current) drug therapy
CPT/HCPCS: 36415; 74177; 80053; 81001; 85025; 99285; J7030; Q9967; 99284

== ENCOUNTER 2016-12-18 09:32 | Emergency (ER) | payer MEDICAID ==
[2016-12-18] MEDS ORDERED: methylPREDNISolone Sodium Succinate 125 MG/2 ML SDV IM ONE (11:09)
[2016-12-18] MEDS ORDERED: hydrOXYzine HCl 100 MG/2 ML SDV IM ONE (11:10)
--- NOTE | 2016-12-18 11:12 | EDM.PDOC ---
ED HPI GENERAL MEDICAL PROBLEM - General Chief Complaint: Skin Complaint Stated Complaint: MEDICAL VIA [place] Time Seen by Provider: 12/18/16 09:40 Source of Information: Reports: Patient History Limitations: Reports: No Limitations - History of Present Illness INITIAL COMMENTS - FREE TEXT/NARRATIVE: pt arrived with a history of starting depakote on Saturday and she now itches all over. She does not have a rash. She feels that she has puffyiness in her facial area. Onset: Today Duration: Hour(s): Location: Reports: Face, Back Associated Symptoms: Reports: Other ( generalized itching. 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: Other (see below) Other Treatments PHOTONICS ENGINEERING TECHNICIAN: benadryl at 0440 - Related Data Allergies Allergy/AdvReac Type Severity Reaction Status Date / Time Sulfa (Sulfonamide Allergy Cannot Verified 12/18/16 09:42 Antibiotics) Remember codeine AdvReac Nausea and Verified 12/18/16 09:42 Vomiting morphine AdvReac Nausea and Verified 12/18/16 09:42 Vomiting Home Meds: Home Meds QUEtiapine Fumarate [Seroquel] 150 mg PO BEDTIME 12/05/15 [History] Cyclobenzaprine [Flexeril] 10 mg PO DAILY PRN 09/19/16 [History] Docusate Sodium 100 mg PO DAILY 09/19/16 [History] Ibuprofen [Motrin] 800 mg PO TID PRN 09/19/16 [History] Magnesium Oxide 400 mg PO DAILY 09/19/16 [History] Omeprazole 40 mg PO DAILY 09/19/16 [History] Pnv with Ca,No.72/Iron/Fa [Preplus Ca-Fe 27 mg-FA 1 mg Tb] 1 each PO DAILY 09/19 [History] QUEtiapine [SEROquel] 50 mg PO BEDTIME 09/19/16 [History] Tiotropium [Spiriva HandiHaler] 18 mcg INH DAILYRT 09/19/16 [History] Venlafaxine [Effexor] 37.5 mg PO DAILY 09/19/16 [History] Albuterol [Ventolin HFA] 2 puff .XX QID PRN 11/04/16 [History] Buprenorphine/Naloxone [Suboxone 2 MG-0.5 MG] 2 mg SL BID 11/04/16 [History] Divalproex Sodium [Depakote] 500 mg PO BEDTIME 12/18/16 [History] Past Medical History Respiratory History: Reports: COPD Gastrointestinal History: Reports: GERD 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: Musculoskeletal History: Reports: Other (See Below) Other Musculoskeletal History: carpal tunnel Psychiatric History: Reports: Addiction, Anxiety, Bipolar, Depression, Suicide Attempt, Suicidal Ideation Oncologic (Cancer) History: Reports: Cervix - Infectious Disease History Infectious Disease History: Reports: Hepatitis C - Past Surgical History HEENT Surgical History: Reports: LASIK GI Surgical History: Reports: Hernia Repair/Other Social & Family History - Family History Psychiatric: Reports: Depression, Other (See Below) Other Psychiatric Family History: addiction - Tobacco Use Smoking Status *Q: Current Every Day Smoker Years of Tobacco use: 45 Packs/Tins Daily: 0.5 - Caffeine Use Caffeine Use: Reports: Coffee - Recreational Drug Use Recreational Drug Use: No Drug Use in Last 12 Months: Yes Recreational Drug Type: Reports: Marijuana/Hashish Other Recreational Drug Type: gabapentin Recreational Drug Use Frequency: Not Used In Over 2 Months ED ROS GENERAL - Review of Systems Review Of Systems: See Below Constitutional: Reports: No Symptoms HEENT: Reports: No Symptoms Respiratory: Reports: No Symptoms Cardiovascular: Reports: No Symptoms Endocrine: Reports: No Symptoms GI/Abdominal: Reports: No Symptoms : Reports: No Symptoms Skin: Reports: Other ( generalized itching. ) Neurological: Reports: No Symptoms Psychiatric: Reports: No Symptoms Free Text/Narrative/Comment: Pt has a history of a borderline personality and now has been diagnosed as a bipolar person. She was placed on depakote for that and is now reacting to the depakote. ED EXAM, SKIN/RASH Exam: See Below Text/Narrative:: Pt arrived with generalized itching. she was tarted on depakote about 3 days ago. Exam Limited By: No Limitations General Appearance: Alert, Anxious Ears: Normal TMs Nose: Normal Inspection Throat/Mouth: Normal Inspection Head: Atraumatic Neck: Normal Inspection Respiratory/Chest: No Respiratory Distress Cardiovascular: Regular Rate, Rhythm GI/Abdominal: Soft, Non-Tender (Female) Exam: Deferred Rectal (Female) Exam: Deferred Back Exam: Normal Inspection Extremities: Normal Inspection Neurological: Alert, Oriented, Normal Cognition Skin: Other (pt does not have a rash) Location, Skin: Face, Back Course - Vital Signs Last Recorded V/S: Last Vital Signs Temp 36.7 C 12/18/16 09:38 Pulse 79 12/18/16 09:38 Resp 16 12/18/16 09:38 BP 124/77 12/18/16 09:38 Pulse Ox 99 12/18/16 09:38 - Orders/Labs/Meds Labs: Laboratory Tests 12/18/16 12/18/16 12/18/16 Range/Units 10:05 10:10 10:10 WBC 8.8 (4.5-11.0) K/uL RBC 3.77 (3.30-5.50) M/uL Hgb 11.6 L (12.0-15.0) g/dL Hct 35.2 L (36.0-48.0) % MCV 93 (80-98) fL MCH 31 (27-31) pg MCHC 33 (32-36) % Plt Count 228 (150-400) K/uL Neut % (Auto) 68 H (36-66) % Lymph % (Auto) 20 L (24-44) % [place] % (Auto) 8 H (2-6) % Eos % (Auto) 4 (2-4) % Baso % (Auto) 1 (0-1) % Sodium 137 L (140-148) mmol/L Potassium 3.9 (3.6-5.2) mmol/L Chloride 101 (100-108) mmol/L Carbon Dioxide 27 (21-32) mmol/L Anion Gap 12.9 (5.0-14.0) mmol/L BUN 10 (7-18) mg/dL Creatinine 0.7 (0.6-1.0) mg/dL Est Cr Clr Drug Dosing 77.16 mL/min Estimated GFR (MDRD) > 60 (>60) Glucose 93 (74-106) mg/dL Calcium 8.9 (8.5-10.1) mg/dL Total Bilirubin 0.3 (0.2-1.0) mg/dL AST 22 (15-37) U/L ALT 19 (12-78) U/L Alkaline Phosphatase 87 (46-116) U/L Total Protein 7.3 (6.4-8.2) g/dL Albumin 2.9 L (3.4-5.0) g/dL Globulin 4.4 H (2.3-3.5) g/dL Albumin/Globulin Ratio 0.7 L (1.2-2.2) Urine Color Yellow Urine Appearance Clear Urine pH 6.5 (4.5-8.0) Ur Specific [place] 1.010 (1.008-1.030) Urine Protein Negative (NEGATIVE) mg/dL Urine Glucose (UA) Normal (NEGATIVE) mg/dL Urine Ketones Negative (NEGATIVE) mg/dL Urine Occult Blood Negative (NEGATIVE) Urine Nitrite Negative (NEGATIVE) Urine Bilirubin Negative (NEGATIVE) Urine Urobilinogen Normal (NORMAL) mg/dL Ur Leukocyte Esterase Negative (NEGATIVE) Urine RBC Not seen (0-5) Urine WBC Not seen (0-5) Ur Epithelial Cells Few Amorphous Sediment Not seen Urine Bacteria Not seen Urine Mucus Not seen Meds: Medications Discontinued Medications Generic Name Dose Route Start Last Admin Trade Name Freq PRN Reason Stop Dose Admin Hydroxyzine HCl 50 mg 12/18/16 11:10 Vistaril IM 12/18/16 11:11 ONETIME ONE Methylprednisolone Sodium Succinate 125 mg 12/18/16 11:09 Solu-Medrol IM 12/18/16 11:10 ONETIME ONE - Re-Assessments/Exams Free Text/Narrative Re-Assessment/Exam: 12/18/16 11:21 pt was given solumedrol 125 im and vistaril 50mg im for the itching. Departure - Departure Time of Disposition: 11:22 Disposition: Home, Self-Care 01 Condition: Fair Clinical Impression: Adverse drug effect - Discharge Information Referrals: PCP,None [Primary Care Provider] - Forms: ED Department Discharge Care Plan Goals: stop depakote, vistaril 50mg po q6h as needed for itching, rtc i further symptoms.
[2016-12-18 11:23] VITALS: BP 126/79
== END 2016-12-18 11:32 | disposition home or self-care (01) ==
LOC: JP.ED 09:32
DX: L29.9 Pruritus, unspecified (principal); T42.6X5A Adverse effect of other antiepileptic and sedative-hypnotic drugs, initial encounter; J44.9 Chronic obstructive pulmonary disease, unspecified; F31.9 Bipolar disorder, unspecified; K21.9 Gastro-esophageal reflux disease without esophagitis; F41.9 Anxiety disorder, unspecified; F17.210 Nicotine dependence, cigarettes, uncomplicated; Z86.19 Personal history of other infectious and parasitic diseases; Z88.6 Allergy status to analgesic agent; Z88.2 Allergy status to sulfonamides; Z88.5 Allergy status to narcotic agent
CPT/HCPCS: 36415; 80053; 81001; 85025; 96372; 99284; J2930; J3410; 99283

== ENCOUNTER 2017-02-01 06:50 | Emergency (ER) | payer MEDICAID ==
[2017-02-01 07:13] VITALS: BP 162/86
--- NOTE | 2017-02-01 08:46 | EDM.PDOC ---
ED HPI GENERAL MEDICAL PROBLEM - General Chief Complaint: General Stated Complaint: EVEL Time Seen by Provider: 02/01/17 08:20 Source of Information: Reports: Patient, Old Records History Limitations: Reports: No Limitations - History of Present Illness INITIAL COMMENTS - FREE TEXT/NARRATIVE: 56 yo female here via EMS from her home in [place] presumably for neck pain. Has chronic neck pain that reportedly is worse over the past 2 days. She has a primary care provider in [place](nurse practitioner), but has not contacted her. Has a dx of bipolar disorder and states she is taking her meds. Sounds like if necessary she might be willing to go to inpatient psych in [place], [place]. Does not mention any injury to her neck. No suicidal or homicidal ideation. Is on Suboxone for chronic pain/narcotic abuse history. Has pressured speech today and gives a very rambling, non-focused history. Daughter states this triny has been building for the past couple of mos. 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) (increased dosing on her Suboxone) - Related Data Allergies Allergy/AdvReac Type Severity Reaction Status Date / Time Sulfa (Sulfonamide Allergy Cannot Verified 12/18/16 09:42 Antibiotics) Remember codeine AdvReac Nausea and Verified 12/18/16 09:42 Vomiting morphine AdvReac Nausea and Verified 12/18/16 09:42 Vomiting Home Meds: Home Meds QUEtiapine Fumarate [Seroquel] 150 mg PO BEDTIME 12/05/15 [History] Cyclobenzaprine [Flexeril] 10 mg PO DAILY PRN 09/19/16 [History] Docusate Sodium 100 mg PO DAILY 09/19/16 [History] Ibuprofen [Motrin] 800 mg PO TID PRN 09/19/16 [History] Magnesium Oxide 400 mg PO DAILY 09/19/16 [History] Omeprazole 40 mg PO DAILY 09/19/16 [History] Pnv with Ca,No.72/Iron/Fa [Preplus Ca-Fe 27 mg-FA 1 mg Tb] 1 each PO DAILY 09/19 [History] QUEtiapine [SEROquel] 50 mg PO BEDTIME 09/19/16 [History] Tiotropium [Spiriva HandiHaler] 18 mcg INH DAILYRT 09/19/16 [History] Venlafaxine [Effexor] 37.5 mg PO DAILY 09/19/16 [History] Albuterol [Ventolin HFA] 2 puff .XX QID PRN 11/04/16 [History] Buprenorphine/Naloxone [Suboxone 2 MG-0.5 MG] 2 mg SL TID 11/04/16 [History] Past Medical History Respiratory History: Reports: COPD Gastrointestinal History: Reports: GERD 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: Musculoskeletal History: Reports: Other (See Below) Other Musculoskeletal History: carpal tunnel Psychiatric History: Reports: Addiction, Anxiety, Bipolar, Depression, Suicide Attempt, Suicidal Ideation Oncologic (Cancer) History: Reports: Cervix - Infectious Disease History Infectious Disease History: Reports: Hepatitis C - Past Surgical History HEENT Surgical History: Reports: LASIK GI Surgical History: Reports: Hernia Repair/Other Social & Family History - Family History Psychiatric: Reports: Depression, Other (See Below) Other Psychiatric Family History: addiction - Tobacco Use Smoking Status *Q: Current Every Day Smoker Years of Tobacco use: 40 Packs/Tins Daily: 1 - Caffeine Use Caffeine Use: Reports: Coffee - Recreational Drug Use Recreational Drug Use: Yes Drug Use in Last 12 Months: Yes Recreational Drug Type: Reports: Marijuana/Hashish Other Recreational Drug Type: gabapentin Recreational Drug Use Frequency: Daily ED ROS GENERAL - Review of Systems Review Of Systems: See Below Constitutional: Reports: No Symptoms HEENT: Reports: No Symptoms Respiratory: Reports: No Symptoms Cardiovascular: Reports: No Symptoms Endocrine: Reports: No Symptoms GI/Abdominal: Reports: No Symptoms : Reports: No Symptoms Musculoskeletal: Reports: Neck Pain Skin: Reports: No Symptoms Neurological: Reports: Numbness Psychiatric: Reports: Anxiety, Other (manic) Hematologic/Lymphatic: Reports: No Symptoms ED EXAM, GENERAL - Physical Exam Exam: See Below Exam Limited By: No Limitations General Appearance: Alert, WD/WN, No Apparent Distress, Thin, Other (animated, full cervical ROM.) Eye Exam: Bilateral Eye: PERRL Ears: Normal External Exam, Normal Canal, Hearing Grossly Normal Ear Exam: Bilateral Ear: Auricle Normal, Canal Normal Nose: Normal Inspection, Normal Mucosa, No Blood Throat/Mouth: Normal Inspection, Normal Lips, Normal Teeth, Normal Oropharynx, Normal Voice, No Airway Compromise Head: Atraumatic, Normocephalic Neck: Normal Inspection, Supple, Full Range of Motion Respiratory/Chest: No Respiratory Distress, Lungs Clear, No Accessory Muscle Use Cardiovascular: Regular Rate, Rhythm, No Edema Extremities: Normal Inspection Neurological: Alert, Normal Cognition, Normal Gait, No Motor/Sensory Deficits Psychiatric: Anxious, Other (pressured speech, rambling history, manic) Skin Exam: Warm, Dry, Intact, Normal Color, No Rash Lymphatic: No Adenopathy Course - Vital Signs Last Recorded V/S: Last Vital Signs Temp 36.1 C 02/01/17 07:40 Pulse 106 H 02/01/17 07:40 Resp 18 02/01/17 07:40 BP 162/86 H 02/01/17 07:40 Pulse Ox 93 L 02/01/17 07:40 - Orders/Labs/Meds Labs: Laboratory Tests 02/01/17 02/01/17 02/01/17 Range/Units 10:36 10:36 10:36 WBC 8.9 (4.5-11.0) K/uL RBC 4.24 (3.30-5.50) M/uL Hgb 12.9 (12.0-15.0) g/dL Hct 38.3 (36.0-48.0) % MCV 90 (80-98) fL MCH 30 (27-31) pg MCHC 34 (32-36) % Plt Count 207 (150-400) K/uL Sodium 134 L (140-148) mmol/L Potassium 4.0 (3.6-5.2) mmol/L Chloride 95 L (100-108) mmol/L Carbon Dioxide 29 (21-32) mmol/L Anion Gap 14.0 (5.0-14.0) mmol/L BUN 16 D (7-18) mg/dL Creatinine 0.8 (0.6-1.0) mg/dL Est Cr Clr Drug Dosing 68.61 mL/min Estimated GFR (MDRD) > 60 (>60) Glucose 126 H (74-106) mg/dL Calcium 10.2 H (8.5-10.1) mg/dL Urine Color Urine Appearance Urine pH (4.5-8.0) Ur Specific [place] (1.008-1.030) Urine Protein (NEGATIVE) mg/dL Urine Glucose (UA) (NEGATIVE) mg/dL Urine Ketones (NEGATIVE) mg/dL Urine Occult Blood (NEGATIVE) Urine Nitrite (NEGATIVE) Urine Bilirubin (NEGATIVE) Urine Urobilinogen (NORMAL) mg/dL Ur Leukocyte Esterase (NEGATIVE) Urine RBC (0-5) Urine WBC (0-5) Ur Epithelial Cells Amorphous Sediment Urine Bacteria Urine Mucus Urine Opiates Screen (NEGATIVE) Ur Oxycodone Screen (NEGATIVE) Urine Methadone Screen (NEGATIVE) Ur Propoxyphene Screen (NEGATIVE) Ur Barbiturates Screen (NEGATIVE) Ur Tricyclics Screen (NEGATIVE) Ur Phencyclidine Scrn (NEGATIVE) Ur Amphetamine Screen (NEGATIVE) U Methamphetamines Scrn (NEGATIVE) Urine MDMA Screen (NEGATIVE) U Benzodiazepines Scrn (NEGATIVE) U Cocaine Metab Screen (NEGATIVE) U Marijuana (THC) Screen (NEGATIVE) Ethyl Alcohol < 3 mg/dL 02/01/17 02/01/17 Range/Units 11:56 11:56 WBC (4.5-11.0) K/uL RBC (3.30-5.50) M/uL Hgb (12.0-15.0) g/dL Hct (36.0-48.0) % MCV (80-98) fL MCH (27-31) pg MCHC (32-36) % Plt Count (150-400) K/uL Sodium (140-148) mmol/L Potassium (3.6-5.2) mmol/L Chloride (100-108) mmol/L Carbon Dioxide (21-32) mmol/L Anion Gap (5.0-14.0) mmol/L BUN (7-18) mg/dL Creatinine (0.6-1.0) mg/dL Est Cr Clr Drug Dosing mL/min Estimated GFR (MDRD) (>60) Glucose (74-106) mg/dL Calcium (8.5-10.1) mg/dL Urine Color Yellow Urine Appearance Clear Urine pH 8.0 (4.5-8.0) Ur Specific [place] 1.010 (1.008-1.030) Urine Protein Negative (NEGATIVE) mg/dL Urine Glucose (UA) Normal (NEGATIVE) mg/dL Urine Ketones Negative (NEGATIVE) mg/dL Urine Occult Blood Negative (NEGATIVE) Urine Nitrite Negative (NEGATIVE) Urine Bilirubin Negative (NEGATIVE) Urine Urobilinogen Normal (NORMAL) mg/dL Ur Leukocyte Esterase Negative (NEGATIVE) Urine RBC Not seen (0-5) Urine WBC Not seen (0-5) Ur Epithelial Cells Not seen Amorphous Sediment Rare Urine Bacteria Not seen Urine Mucus Not seen Urine Opiates Screen Negative (NEGATIVE) Ur Oxycodone Screen Negative (NEGATIVE) Urine Methadone Screen Negative (NEGATIVE) Ur Propoxyphene Screen Negative (NEGATIVE) Ur Barbiturates Screen Negative (NEGATIVE) Ur Tricyclics Screen Negative (NEGATIVE) Ur Phencyclidine Scrn Negative (NEGATIVE) Ur Amphetamine Screen Negative (NEGATIVE) U Methamphetamines Scrn Negative (NEGATIVE) Urine MDMA Screen Negative (NEGATIVE) U Benzodiazepines Scrn Negative (NEGATIVE) U Cocaine Metab Screen Negative (NEGATIVE) U Marijuana (THC) Screen Positive H (NEGATIVE) Ethyl Alcohol mg/dL Meds: Medications Discontinued Medications Generic Name Dose Route Start Last Admin Trade Name Freq PRN Reason Stop Dose Admin Diazepam 5 mg 02/01/17 10:09 02/01/17 10:13 Valium. PO 02/01/17 10:10 5 mg ONETIME ONE Administration Glycerin 1 supp 02/01/17 10:56 02/01/17 11:08 Sani-Supp Adult RECTAL 02/01/17 10:57 1 supp ONETIME ONE Administration Ondansetron HCl 4 mg 02/01/17 10:56 02/01/17 11:08 Zofran Odt PO 02/01/17 10:57 4 mg ONETIME ONE Administration Departure - Departure Time of Disposition: 12:55 Disposition: Eloped 07 Condition: Fair Clinical Impression: Triny, Chronic neck pain - Discharge Information Referrals: PCP,None [Primary Care Provider] - Forms: ED Department Discharge
[2017-02-01] MEDS ORDERED: Diazepam 5 MG Tab PO ONE (10:09)
[2017-02-01] MEDS ORDERED: Ondansetron 4 MG Tab.DIS PO ONE (10:56)
[2017-02-01] MEDS ORDERED: Glycerin Adult 2.1 GM Supp RECTAL ONE (10:56)
== END 2017-02-01 12:30 | disposition left against medical advice (07) ==
LOC: JP.ED 06:50
DX: M54.2 Cervicalgia (principal); G89.29 Other chronic pain; F30.9 Manic episode, unspecified; F17.210 Nicotine dependence, cigarettes, uncomplicated; F31.9 Bipolar disorder, unspecified; Z88.5 Allergy status to narcotic agent; Z88.2 Allergy status to sulfonamides
CPT/HCPCS: 36415; 80048; 80305; 81001; 85027; 99283; 99284; A9270; G0480

== ENCOUNTER 2017-02-01 17:55 | Emergency (ER) | payer MEDICAID ==
[2017-02-01] MEDS ORDERED: Nicotine 21 MG/24 Hr Patch TRDERM ONE (19:16)
[2017-02-01] MEDS ORDERED: Nicotine Polacrilex 2 MG Gum CHEW PRN (19:16)
--- NOTE | 2017-02-01 19:19 | EDM.PDOCBH ---
ED HPI GENERAL MEDICAL PROBLEM - General Chief Complaint: Behavioral/Psych Stated Complaint: MEDICAL [facility] Time Seen by Provider: 02/01/17 18:58 Source of Information: Reports: Patient, RN Notes Reviewed History Limitations: Reports: Other (Triny) - History of Present Illness INITIAL COMMENTS - FREE TEXT/NARRATIVE: 56-year-old female presents to the emergency department today complaint of excessive Suboxone ingestion, she states she is not trying to harm herself she took the medication because she's having pain at this time she is relatively pain-free she is in the emergency department earlier today this is her second visit she is manic does have a history of bipolar disease does follow with pain clinic in [place]. She denies any suicidal ideation at this time Discussed the case with poison control recommended monitoring for 12 hours for respiratory depression and treatment with Narcan if needed Left Neck Pain Score (Numeric/FACES): 4 - Related Data Allergies Allergy/AdvReac Type Severity Reaction Status Date / Time Sulfa (Sulfonamide Allergy Cannot Verified 02/01/17 18:20 Antibiotics) Remember codeine AdvReac Nausea and Verified 02/01/17 18:20 Vomiting morphine AdvReac Nausea and Verified 02/01/17 18:20 Vomiting Home Meds: Home Meds QUEtiapine Fumarate [Seroquel] 150 mg PO BEDTIME 12/05/15 [History] Cyclobenzaprine [Flexeril] 10 mg PO DAILY PRN 09/19/16 [History] Docusate Sodium 100 mg PO DAILY 09/19/16 [History] Ibuprofen [Motrin] 800 mg PO TID PRN 09/19/16 [History] Magnesium Oxide 400 mg PO DAILY 09/19/16 [History] Omeprazole 40 mg PO DAILY 09/19/16 [History] Pnv with Ca,No.72/Iron/Fa [Preplus Ca-Fe 27 mg-FA 1 mg Tb] 1 each PO DAILY 09/19 [History] QUEtiapine [SEROquel] 50 mg PO BEDTIME 09/19/16 [History] Tiotropium [Spiriva HandiHaler] 18 mcg INH DAILYRT 09/19/16 [History] Venlafaxine [Effexor] 37.5 mg PO DAILY 09/19/16 [History] Albuterol [Ventolin HFA] 2 puff .XX QID PRN 11/04/16 [History] Buprenorphine/Naloxone [Suboxone 2 MG-0.5 MG] 2 mg SL TID 11/04/16 [History] Past Medical History Respiratory History: Reports: COPD Gastrointestinal History: Reports: [employer]ST History: Reports: Musculoskeletal History: Reports: Other (See Below) Other Musculoskeletal History: carpal tunnel Psychiatric History: Reports: Addiction, Anxiety, Bipolar, Depression, Suicide Attempt, Suicidal Ideation Oncologic (Cancer) History: Reports: Cervix - Infectious Disease History Infectious Disease History: Reports: Hepatitis C, Other (See Below) Other Infectious Disease History: reports hep c is gone - Past Surgical History HEENT Surgical History: Reports: LASIK GI Surgical History: Reports: Hernia Repair/Other Social & Family History - Family History Psychiatric: Reports: Depression, Other (See Below) Other Psychiatric Family History: addiction - Tobacco Use Smoking Status *Q: Current Every Day Smoker Years of Tobacco use: 40 Packs/Tins Daily: 1 - Caffeine Use Caffeine Use: Reports: Coffee - Recreational Drug Use Recreational Drug Use: Yes Drug Use in Last 12 Months: Yes Recreational Drug Type: Reports: Marijuana/Hashish, Morphine Other Recreational Drug Type: gabapentin Recreational Drug Use Frequency: Daily ED ROS GENERAL - Review of Systems Review Of Systems: See Below Constitutional: Reports: No Symptoms HEENT: Reports: No Symptoms Respiratory: Reports: No Symptoms Cardiovascular: Reports: No Symptoms GI/Abdominal: Reports: No Symptoms : Reports: No Symptoms Musculoskeletal: Reports: Neck Pain Skin: Reports: No Symptoms Neurological: Reports: Headache Psychiatric: Reports: Other (Triny) ED EXAM, BEHAVIORAL HEALTH - Physical Exam Exam: See Below Exam Limited By: No Limitations General Appearance: Alert, WD/WN, No Apparent Distress Respiratory/Chest: No Respiratory Distress, Lungs Clear, Normal Breath Sounds, No Accessory Muscle Use Cardiovascular: Regular Rate, Rhythm, No Murmur GI/Abdominal: Soft, Non-Tender COURSE, BEHAVIORAL HEALTH COMP - Course Vital Signs: Last Vital Signs Temp 97.3 F 02/01/17 18:18 Pulse 75 02/02/17 05:26 Resp 14 02/02/17 05:26 BP 132/75 02/02/17 05:26 Pulse Ox 94 L 02/01/17 21:44 Orders, Labs, Meds: Active Orders 24 hr Category Date Time Status Nicotine Polacrilex [Nicorelief] Med 02/01/17 19:16 Active 4 mg CHEW Q1H PRN Medication Orders Nicotine Polacrilex (Nicorelief) 4 mg CHEW Q1H PRN PRN Reason: Agitation Medications Generic Name Dose Route Start Last Admin Trade Name Freq PRN Reason Stop Dose Admin Nicotine Polacrilex 4 mg 02/01/17 19:16 Nicorelief CHEW Q1H PRN Agitation Discontinued Medications Generic Name Dose Route Start Last Admin Trade Name Freq PRN Reason Stop Dose Admin Nicotine 21 mg 02/01/17 19:16 02/01/17 20:19 Habitrol TRDERM 02/01/17 19:17 21 mg ONETIME ONE Administration Departure - Departure Time of Disposition: 05:39 Disposition: Home, Self-Care 01 Condition: Fair Clinical Impression: Drug overdose Qualifiers: Encounter type: initial encounter Injury intent: undetermined intent Qualified Code(s): T50.904A - Poisoning by unspecified drugs, medicaments and biological substances, undetermined, initial encounter - Discharge Information Referrals: PCP,None [Primary Care Provider] - Forms: ED Department Discharge Additional Instructions: Please follow-up with your pain control clinic and her mental health provider call return to the emergency department worsening of symptoms - My Orders Last 24 Hours: My Active Orders 02/01/17 19:16 Nicotine Polacrilex [Nicorelief] 4 mg CHEW Q1H PRN - Assessment/Plan Last 24 Hours: My Active Orders 02/01/17 19:16 Nicotine Polacrilex [Nicorelief] 4 mg CHEW Q1H PRN Plan: Assessment Acuity = acute Site and laterality = intentional ingestion of excess Suboxone complicated patient with known history of bipolar disease and chronic neck pain as well as a history of addiction Etiology = increased pain causing her to take additional medication Manifestations = none Location of injury = Home Lab values = no new labs during this this particular ER visit, labs from prior ER visit same day unremarkable Plan Per recommendations of poison control observe for 12 hours no significant change in vital signs, plan to discharge to home when she arouses recommend follow-up with both mental health provider and pain clinic Patient was in agreement with the plan all questions were answered, they were instructed to return to the emergency department or call for worsening symptoms. This note was dictated using [employer] voice recognition software please call with any questions.
[2017-02-02 05:27] VITALS: BP 132/75
[2017-02-02] MEDS ORDERED: Ibuprofen 800 MG Tab PO ONE (08:10)
== END 2017-02-02 09:36 | disposition home or self-care (01) ==
LOC: JP.ED 17:55
DX: T40.4X2A Poisoning by other synthetic narcotics, intentional self-harm, initial encounter (principal); J44.9 Chronic obstructive pulmonary disease, unspecified; F31.9 Bipolar disorder, unspecified; K21.9 Gastro-esophageal reflux disease without esophagitis; F17.210 Nicotine dependence, cigarettes, uncomplicated; Z79.899 Other long term (current) drug therapy; Z88.5 Allergy status to narcotic agent; Z88.2 Allergy status to sulfonamides
CPT/HCPCS: 99284; A9270

== ENCOUNTER 2021-05-07 11:11 | Emergency (ER) | payer MEDICAID ==
[2021-05-07 12:24] VITALS: BP 109/57; PULSE 84
[2021-05-07] MEDS ORDERED: Levofloxacin 250 MG Tab PO ONE (12:28)
== END 2021-05-07 13:00 | disposition home or self-care (01) ==
LOC: JP.ED 11:11
DX: J18.9 Pneumonia, unspecified organism (principal); J43.9 Emphysema, unspecified; K21.9 Gastro-esophageal reflux disease without esophagitis; F17.200 Nicotine dependence, unspecified, uncomplicated; Z88.2 Allergy status to sulfonamides; Z88.5 Allergy status to narcotic agent; Z79.899 Other long term (current) drug therapy
CPT/HCPCS: 36415; 71250; 80048; 85025; 99284; A9270